=== PATIENT | female | born 1940 | race Two or more races ===

== ENCOUNTER 2018-09-25 13:48 | Inpatient (IN) | payer MEDICARE, OTHER ==
[2018-09-25] MEDS ORDERED: DILTIAZEM HCL INJ 25 MG/5 ML VIAL IV ONE ×2 (14:07→16:05)
[2018-09-25] MEDS ORDERED: NORMAL SALINE 1000 ML 1,000 ML IV ONE (14:09)
--- NOTE | 2018-09-25 14:13 | EKG REPORT ---
SEVERITY:- ABNORMAL ECG - ATRIAL FIBRILLATION WITH RAPID V-RATE REPOLARIZATION ABNORMALITY, PROB RATE RELATED : Confirmed by: Moy Moreno MD 25-Sep-2018 14:11:43
[2018-09-25] MEDS ORDERED: SUCCINYLCHOLINE CHLORIDE INJ 200 MG/10 ML VIAL ONE (14:14)
[2018-09-25 14:22] LABS: ABSOLUTE BASOPHILS # (AUTO) 0.1 10^3/uL (0.0-0.2); ABSOLUTE EOSINOPHILS # (AUTO) 0.2 10^3/uL (0.0-0.6); ABSOLUTE LYMPHOCYTES (AUTO) 3.8 10^3/uL (0.5-4.7); ABSOLUTE NEUT (AUTO) 7.1 10^3/uL (1.7-8.2); BASOPHILS % (AUTO) 0.8 % (0-2); EOSINOPHILS % (AUTO) 1.5 % (0-6); HEMATOCRIT 38.4 % (36.0-47.0); LYMPHOCYTES % (AUTO) 31.2 % (13-45); MEAN CORPUSCULAR HEMOGLOBIN 27.5 pg (27.0-33.4); MEAN CORPUSCULAR HGB CONC 31.3 g/dL (32.0-36.0); MEAN CORPUSCULAR VOLUME 88 fl (80-97); MONOCYTES % (AUTO) 8.3 % (3-13); PLATELET COUNT 289 10^3/uL (150-450); RED BLOOD COUNT 4.37 10^6/uL (3.72-5.28); RED CELL DISTRIBUTION WIDTH 17.9 % (11.5-14.0); SEGMENTED NEUTROPHILS % (AUTO) 58.2 % (42-78); TOTAL CELLS COUNTED % (AUTO) 100 %; WHITE BLOOD COUNT 12.2 10^3/uL (4.0-10.5)
[2018-09-25 14:31] LABS: ALANINE AMINOTRANSFERASE 16 U/L (9-52); ALBUMIN 3.9 g/dL (3.5-5.0); ALKALINE PHOSPHATASE 124 U/L (38-126); ASPARTATE AMINO TRANSFERASE 25 U/L (14-36); BILIRUBIN,DIRECT 0.3 mg/dL (0.0-0.4); BILIRUBIN,TOTAL 0.4 mg/dL (0.2-1.3); BLOOD UREA NITROGEN 25 mg/dL (7-20); CALCIUM 9.4 mg/dL (8.4-10.2); POTASSIUM 4.2 mmol/L (3.6-5.0); TOTAL PROTEIN 6.7 g/dL (6.3-8.2)
[2018-09-25 14:36] LABS: CARBON DIOXIDE 13 mmol/L (22-30); CHLORIDE 99 mmol/L (98-107); SODIUM 138.6 mmol/L (137-145)
[2018-09-25 14:41] LABS: ANION GAP 27 (5-19)
[2018-09-25 14:44] LABS: GLUCOSE 634 mg/dL (75-110)
[2018-09-25] MEDS ORDERED: DEXTROSE 50%-WATER 25 GM/50 ML DISP.SYRIN IV PRN ×4 (14:54→16:40)
[2018-09-25] MEDS ORDERED: DEXTROSE 40% GEL 15 GM TUBE PO PRN ×4 (14:54→16:40)
[2018-09-25] MEDS ORDERED: NORMAL SALINE 100 ML with INSULIN REGULAR, HUMAN 100 UNIT IV PRN ×4 (14:54→16:40)
[2018-09-25] MEDS ORDERED: GLUCAGON,HUMAN RECOMB 1 MG INJ IM PRN ×2 (14:54→16:40)
--- NOTE | 2018-09-25 15:03 | RADIOLOGY REPORT (SQ) ---
EXAM DESCRIPTION: CHEST SINGLE VIEW COMPLETED DATE/TIME: 09/25/2018 2:42 pm REASON FOR STUDY: altered mental status COMPARISON: None. EXAM PARAMETERS: NUMBER OF VIEWS: One view. TECHNIQUE: Single frontal radiographic view of the chest acquired. RADIATION DOSE: NA LIMITATIONS: None. FINDINGS: LUNGS AND PLEURA: Right infrahilar opacity. No focal opacity of the left lung. No pleura l effusion or pneumothorax. MEDIASTINUM AND HILAR STRUCTURES: No masses. Contour normal. HEART AND VASCULAR STRUCTURES: Heart normal in size. Normal vasculature. Calcifications of the aort ic knob. BONES: No acute findings. HARDWARE: None in the chest. OTHER: No other significant finding. IMPRESSION: Right infrahilar pneumonia. TECHNICAL DOCUMENTATION: JOB ID: [id number] [employer]- All Rights Reserved Reading location - IP/workstation name: [email or web address]
[2018-09-25] MEDS ORDERED: CEFTRIAXONE INJ 1000 MG VIAL IV ONE (15:09)
[2018-09-25] MEDS ORDERED: AZITHROMYCIN INJ 500 MG VIAL IV ONE (15:10)
[2018-09-25] MEDS: DILTIAZEM HCL/D5W 125 MG/125 ML RTUINJ IV PRN ×3 (15:24→21:37)
--- NOTE | 2018-09-25 15:24 | ER Document Report ---
ED General - General Chief Complaint: Altered Mental Status Stated Complaint: ALTERED MENTAL STATUS Time Seen by Provider: 09/25/18 14:00 Notes: Patient is a 78-year-old female with diabetes mellitus that presents to the emergency department for chief complaint of altered mental status. History provided by the patient's who is at bedside, as the patient is currently altered and not able to answer questions. He states that around 130 today, the patient seemed to have a brief seizure, and was convulsing, for less than a minute, her eyes had rolled back. No tongue biting. Her loss of bowel or bladder function. No prior history of seizures. She does have atrial fibrillation, and diabetes mellitus. He states she has had a similar episode when she had a urinary tract infection when she was altered and argumentative. He states that over the past week she has been more weak, not been taking her medications including her Lantus 50 units at night which she usually takes. She was also complaining of sweating prior to this episode. Patient was given 2 mg of Ativan by EMS prior to ED arrival as well. Past Medical History: Diabetes mellitus, atrial fibrillation, overactive bladder , hypertension Past Surgical History: Bilateral total knee arthroplasties Social History: Denies current tobacco, alcohol or drug use Family History: Reviewed and noncontributory for presenting illness Allergies: Reviewed, see documented allergy list. REVIEW OF SYSTEMS: Complete review of systems is not obtainable at this time secondary to the patient's altered mental status. PHYSICAL EXAMINATION: Vital signs reviewed, nursing noted reviewed. GENERAL: Elderly female, altered, incomprehensible sounds, will open eyes to noxious stimuli, and localize pain and withdrawal, GCS: 9 HEAD: Atraumatic, normocephalic. EYES: Eyes appear normal, extraocular movements intact, sclera anicteric, conjunctiva are normal. PERRLA ENT: nares patent, oropharynx clear without exudates. Dry mucous membranes NECK:supple without lymphadenopathy LUNGS: Breath sounds clear to auscultation bilaterally and equal. No wheezes rales or rhonchi. No acute respiratory distress HEART: Heart rate tachycardic, and irregular rhythm ABDOMEN: Soft, obese, not apparently tender, normoactive bowel sounds. No rebound, guarding, or rigidity. No masses appreciated. EXTREMITIES: Not apparently tender, moving all limbs spontaneously, no pitting or edema. NEUROLOGICAL: GCS: 9, but patient is spontaneously moving all limbs, sensation appears grossly intact, as patient will withdraw all limbs as well with noxious stimuli distally. Incomprehensible sounds for verbal response. PSYCH: Altered, decreased mental status SKIN: Warm, Dry, normal turgor, no rashes or lesions noted on exposed skin - Related Data Allergies/Adverse Reactions: No Known Allergies Allergy (Unverified 09/17/12 19:45) Past Medical History - Social History Smoking Status: Unknown if Ever Smoked Family History: Reviewed & Not Pertinent Patient has suicidal ideation: No Patient has homicidal ideation: No - Past Medical History Cardiac Medical History: Reports: Hx Hypertension Endocrine Medical History: Reports: Hx Diabetes Mellitus Type 2 Renal/ Medical History: Denies: Hx Peritoneal Dialysis Past Surgical History: Reports: Hx Orthopedic Surgery - Bilat knees, Hx Tonsillectomy Physical Exam - Vital signs Vitals: Resp Pulse Ox 28 H 91 L 09/25/18 14:00 09/25/18 14:00 Course - Re-evaluation Re-evalutation: Patient seen and examined vital signs reviewed. Laboratory data and imaging were ordered as appropriate for the patient's presenting symptoms and complaint, with consideration of any critical or life threatening conditions that may be associated with their obtained history and exam as noted above. Patient was treated with 2 L of IV fluid, started on Cardizem bolus and infusion , initially given 10 mg bolus, patient still tachycardic, therefore given an additional 10 mg bolus after starting on the infusion, she was also started on an insulin infusion, for the patient's DKA. Results were reviewed when available and demonstrated negative CT of the head, and the limitations of motion artifact. Blood work was most consistent with diabetic ketoacidosis, with coma, her bicarbonate was 13, with a gap of 27. Her chest x-ray did demonstrate a possible right lobe pneumonia, patient was started on Rocephin and azithromycin to treat this as well. The patient was re-evaluated and was slightly more responsive, heart rate was improving, however patient still remained critical and needing admission, to the ICU, for further evaluation and management of her acute conditions. From a hemodynamic standpoint her blood pressure was stable throughout her ED course, but she was tachycardic, but improved after the Cardizem infusion. Patient's lactic acid was elevated, she was given IV fluids bolus, repeat was ordered. Evaluation was most consistent with DKA, atrial fibrillation with rapid ventricular response, altered mental status, metabolic encephalopathy Results were discussed with the patient has at this point after careful consideration I feel that that patient should be admitted to the hospital. This was discussed with the patient's at bedside that it is in the best interest for their care to be admitted for further evaluation and management. Patient agreed with this plan of care. A call was placed to the admitted physician, Dr. Mascorro who graciously accepted the patient onto their service. *Note is created using voice recognition software and may contain spelling, syntax or grammatical errors. Laboratory 09/25/18 09/25/18 09/25/18 13:05 13:05 13:05 WBC 12.2 H RBC 4.37 Hgb 12.0 Hct 38.4 MCV 88 MCH 27.5 MCHC 31.3 L RDW 17.9 H Plt Count 289 Seg Neutrophils % 58.2 Lymphocytes % 31.2 Monocytes % 8.3 Eosinophils % 1.5 Basophils % 0.8 Absolute Neutrophils 7.1 Absolute Lymphocytes 3.8 Absolute Monocytes 1.0 Absolute Eosinophils 0.2 Absolute Basophils 0.1 Carbonic Acid HCO3/H2CO3 Ratio ABG pH ABG pCO2 ABG pO2 ABG HCO3 ABG Total CO2 ABG O2 Saturation ABG Base Excess VBG pH VBG pCO2 VBG HCO3 VBG Base Excess FiO2 Sodium 138.6 Potassium 4.2 Chloride 99 Carbon Dioxide 13 L Anion Gap 27 H BUN 25 H Creatinine 1.88 H Est GFR ( Amer) 31 L Est GFR (Non-Af Amer) 26 L Glucose 634 H* POC Glucose Lactic Acid Calcium 9.4 Phosphorus Magnesium Total Bilirubin 0.4 Direct Bilirubin 0.3 Neonat Total Bilirubin Not Reportable Neonat Direct Bilirubin Not Reportable Neonat Indirect Bili Not Reportable AST 25 ALT 16 Alkaline Phosphatase 124 Ammonia Creatine Kinase CK-MB (CK-2) Troponin I 0.073 Total Protein 6.7 Albumin 3.9 Urine Color Urine Appearance Urine pH Ur Specific Marion Urine Protein Urine Glucose (UA) Urine Ketones Urine Blood Urine Nitrite Urine Bilirubin Urine Urobilinogen Ur Leukocyte Esterase Urine WBC (Auto) Urine RBC (Auto) Squamous Epi Cells Auto Urine Mucus (Auto) Urine Ascorbic Acid 09/25/18 09/25/18 09/25/18 15:20 15:20 15:20 WBC RBC Hgb Hct MCV MCH MCHC RDW Plt Count Seg Neutrophils % Lymphocytes % Monocytes % Eosinophils % Basophils % Absolute Neutrophils Absolute Lymphocytes Absolute Monocytes Absolute Eosinophils Absolute Basophils Carbonic Acid HCO3/H2CO3 Ratio ABG pH ABG pCO2 ABG pO2 ABG HCO3 ABG Total CO2 ABG O2 Saturation ABG Base Excess VBG pH 7.33 VBG pCO2 37.5 VBG HCO3 19.1 L VBG Base Excess -6.3 FiO2 Sodium Potassium Chloride Carbon Dioxide Anion Gap BUN Creatinine Est GFR ( Amer) Est GFR (Non-Af Amer) Glucose POC Glucose Lactic Acid 2.5 H Calcium Phosphorus Magnesium Total Bilirubin Direct Bilirubin Neonat Total Bilirubin Neonat Direct Bilirubin Neonat Indirect Bili AST ALT Alkaline Phosphatase Ammonia < 8.7 L Creatine Kinase CK-MB (CK-2) Troponin I Total Protein Albumin Urine Color Urine Appearance Urine pH Ur Specific Marion Urine Protein Urine Glucose (UA) Urine Ketones Urine Blood Urine Nitrite Urine Bilirubin Urine Urobilinogen Ur Leukocyte Esterase Urine WBC (Auto) Urine RBC (Auto) Squamous Epi Cells Auto Urine Mucus (Auto) Urine Ascorbic Acid 09/25/18 09/25/18 09/25/18 17:20 17:31 17:42 WBC RBC Hgb Hct MCV MCH MCHC RDW Plt Count Seg Neutrophils % Lymphocytes % Monocytes % Eosinophils % Basophils % Absolute Neutrophils Absolute Lymphocytes Absolute Monocytes Absolute Eosinophils Absolute Basophils Carbonic Acid HCO3/H2CO3 Ratio ABG pH ABG pCO2 ABG pO2 ABG HCO3 ABG Total CO2 ABG O2 Saturation ABG Base Excess VBG pH VBG pCO2 VBG HCO3 VBG Base Excess FiO2 Sodium Potassium Chloride Carbon Dioxide Anion Gap BUN Creatinine Est GFR ( Amer) Est GFR (Non-Af Amer) Glucose POC Glucose 521 H* Lactic Acid Calcium Phosphorus Magnesium Total Bilirubin Direct Bilirubin Neonat Total Bilirubin Neonat Direct Bilirubin Neonat Indirect Bili AST ALT Alkaline Phosphatase Ammonia Creatine Kinase CK-MB (CK-2) Troponin I 0.078 Total Protein Albumin Urine Color STRAW Urine Appearance CLEAR Urine pH 5.0 Ur Specific Marion 1.017 Urine Protein 100 H Urine Glucose (UA) >=500 H Urine Ketones NEGATIVE Urine Blood SMALL H Urine Nitrite NEGATIVE Urine Bilirubin NEGATIVE Urine Urobilinogen NEGATIVE Ur Leukocyte Esterase NEGATIVE Urine WBC (Auto) 0 Urine RBC (Auto) 1 Squamous Epi Cells Auto <1 Urine Mucus (Auto) RARE Urine Ascorbic Acid NEGATIVE 09/25/18 09/25/18 09/25/18 18:23 19:00 19:00 WBC RBC Hgb Hct MCV MCH MCHC RDW Plt Count Seg Neutrophils % Lymphocytes % Monocytes % Eosinophils % Basophils % Absolute Neutrophils Absolute Lymphocytes Absolute Monocytes Absolute Eosinophils Absolute Basophils Carbonic Acid HCO3/H2CO3 Ratio ABG pH ABG pCO2 ABG pO2 ABG HCO3 ABG Total CO2 ABG O2 Saturation ABG Base Excess VBG pH VBG pCO2 VBG HCO3 VBG Base Excess FiO2 Sodium 142.7 Potassium 4.1 Chloride 106 Carbon Dioxide 19 L Anion Gap 18 BUN 24 H Creatinine 1.66 H Est GFR ( Amer) 36 L Est GFR (Non-Af Amer) 30 L Glucose 366 H POC Glucose 395 H Lactic Acid Calcium 8.8 Phosphorus 2.2 L Magnesium 1.4 L Total Bilirubin 0.4 Direct Bilirubin 0.3 Neonat Total Bilirubin Not Reportable Neonat Direct Bilirubin Not Reportable Neonat Indirect Bili Not Reportable AST 28 ALT 13 Alkaline Phosphatase 108 Ammonia Creatine Kinase 120 CK-MB (CK-2) 1.45 Troponin I 0.085 Total Protein 6.9 Albumin 3.7 Urine Color Urine Appearance Urine pH Ur Specific Marion Urine Protein Urine Glucose (UA) Urine Ketones Urine Blood Urine Nitrite Urine Bilirubin Urine Urobilinogen Ur Leukocyte Esterase Urine WBC (Auto) Urine RBC (Auto) Squamous Epi Cells Auto Urine Mucus (Auto) Urine Ascorbic Acid 09/25/18 09/25/18 09/25/18 19:46 20:06 20:18 WBC RBC Hgb Hct MCV MCH MCHC RDW Plt Count Seg Neutrophils % Lymphocytes % Monocytes % Eosinophils % Basophils % Absolute Neutrophils Absolute Lymphocytes Absolute Monocytes Absolute Eosinophils Absolute Basophils Carbonic Acid 1.19 HCO3/H2CO3 Ratio 16:1 ABG pH 7.32 L ABG pCO2 39.5 ABG pO2 69.9 L ABG HCO3 19.8 L ABG Total CO2 21.0 ABG O2 Saturation 92.8 L ABG Base Excess -5.9 VBG pH VBG pCO2 VBG HCO3 VBG Base Excess FiO2 60% Sodium Potassium Chloride Carbon Dioxide Anion Gap BUN Creatinine Est GFR ( Amer) Est GFR (Non-Af Amer) Glucose POC Glucose 290 H Lactic Acid 5.2 H Calcium Phosphorus Magnesium Total Bilirubin Direct Bilirubin Neonat Total Bilirubin Neonat Direct Bilirubin Neonat Indirect Bili AST ALT Alkaline Phosphatase Ammonia Creatine Kinase CK-MB (CK-2) Troponin I Total Protein Albumin Urine Color Urine Appearance Urine pH Ur Specific Marion Urine Protein Urine Glucose (UA) Urine Ketones Urine Blood Urine Nitrite Urine Bilirubin Urine Urobilinogen Ur Leukocyte Esterase Urine WBC (Auto) Urine RBC (Auto) Squamous Epi Cells Auto Urine Mucus (Auto) Urine Ascorbic Acid 09/25/18 09/25/18 09/25/18 21:20 22:33 22:46 WBC RBC Hgb Hct MCV MCH MCHC RDW Plt Count Seg Neutrophils % Lymphocytes % Monocytes % Eosinophils % Basophils % Absolute Neutrophils Absolute Lymphocytes Absolute Monocytes Absolute Eosinophils Absolute Basophils Carbonic Acid HCO3/H2CO3 Ratio ABG pH ABG pCO2 ABG pO2 ABG HCO3 ABG Total CO2 ABG O2 Saturation ABG Base Excess VBG pH VBG pCO2 VBG HCO3 VBG Base Excess FiO2 Sodium 142.2 Potassium 4.5 Chloride 109 H Carbon Dioxide 20 L Anion Gap 13 BUN 23 H Creatinine 1.69 H Est GFR ( Amer) 36 L Est GFR (Non-Af Amer) 29 L Glucose 149 H POC Glucose 260 H 154 H Lactic Acid Calcium 9.0 Phosphorus Magnesium Total Bilirubin Direct Bilirubin Neonat Total Bilirubin Neonat Direct Bilirubin Neonat Indirect Bili AST ALT Alkaline Phosphatase Ammonia Creatine Kinase CK-MB (CK-2) Troponin I Total Protein Albumin Urine Color Urine Appearance Urine pH Ur Specific Marion Urine Protein Urine Glucose (UA) Urine Ketones Urine Blood Urine Nitrite Urine Bilirubin Urine Urobilinogen Ur Leukocyte Esterase Urine WBC (Auto) Urine RBC (Auto) Squamous Epi Cells Auto Urine Mucus (Auto) Urine Ascorbic Acid Abdomen/Pelvis CT 09/25/18 00:00 IMPRESSION: Limited study without IV or oral contrast. No evidence of bowel obstruction. Right lung base atelectasis/consolidation with trace pleural effusion. Chest X-Ray 09/25/18 14:06 IMPRESSION: Right infrahilar pneumonia. Head CT 09/25/18 14:07 IMPRESSION: 1. Significantly motion degraded exam. No acute intracranial findings of the evaluated structures. 2. Mild chronic microvascular ischemic disease. EVIDENCE OF ACUTE STROKE: NO. - Vital Signs Vital signs: Temp Pulse Resp BP Pulse Ox 102.9 F H 29 H 177/132 H 97 09/25/18 22:38 09/25/18 18:00 09/25/18 16:00 09/25/18 19:20 - Laboratory Result Diagrams: 09/25/18 13:05 09/25/18 22:46 Laboratory results interpreted by me: 09/25/18 09/25/18 09/25/18 13:05 13:05 15:20 WBC 12.2 H MCHC 31.3 L RDW 17.9 H VBG HCO3 19.1 L Carbon Dioxide 13 L Anion Gap 27 H BUN 25 H Creatinine 1.88 H Est GFR ( Amer) 31 L Est GFR (Non-Af Amer) 26 L Glucose 634 H* Lactic Acid Ammonia 09/25/18 09/25/18 15:20 15:20 WBC MCHC RDW VBG HCO3 Carbon Dioxide Anion Gap BUN Creatinine Est GFR ( Amer) Est GFR (Non-Af Amer) Glucose Lactic Acid 2.5 H Ammonia < 8.7 L - EKG Interpretation by Me Additional EKG results interpreted by me: EKG demonstrates atrial fibrillation with rapid ventricular response, with a ventricular rate of 153 bpm, normal axis, QTC 434 ms, there is T wave inversions in leads II, III and aVF, no prior EKG for comparison. Critical Care Note - Critical Care Note Total time excluding time spent on procedures (mins): 55 Comments: Critical care time 55 minutes exclusive from separate billable procedures for a patient requiring complex medical decision making, and high potential for clinical deterioration. And altered patient, with DKA, and community-acquired pneumonia, and atrial fibrillation with rapid ventricular response, requiring IV infusion of Cardizem, and frequent monitoring.. Time spent obtaining history from patient or surrogate, discussions with consultants, development of treatment plan with patient or surrogate, evaluation of patient's response to treatment, examination of patient, ordering and performing treatments and interventions, ordering and review of laboratory studies, re-evaluation of patient's condition, ordering and review of radiographic studies and review of old charts Discharge - Discharge Clinical Impression: Atrial fibrillation with RVR, Metabolic encephalopathy, Lactic acidosis, ANGELITA ( acute kidney injury) DKA (diabetic ketoacidoses) Qualifiers: Diabetes mellitus type: type 2 Diabetes mellitus complication detail: with coma Qualified Code(s): E11.11 - Type 2 diabetes mellitus with ketoacidosis with coma Pneumonia Qualifiers: Pneumonia type: due to unspecified organism Laterality: right Lung location: middle lobe of lung Qualified Code(s): J18.1 - Lobar pneumonia, unspecified organism Leukocytosis Qualifiers: Leukocytosis type: unspecified Qualified Code(s): D72.829 - Elevated white blood cell count, unspecified Condition: Stable Disposition: ADMITTED INPATIENT Admitting Provider: Hospitalist - Dr. Mascorro Unit Admitted: ICU
[2018-09-25 15:41] LABS: VENOUS BLOOD BASE EXCESS -6.3 mmol/L; VENOUS BLOOD HCO3 19.1 mmol/L (20-32); VENOUS BLOOD PCO2 37.5 mmHg (35-63); VENOUS BLOOD PH 7.33 (7.30-7.42)
[2018-09-25] MEDS ORDERED: INSULIN REG, HUMAN 100 UNIT/ML 3 ML VIAL (PYX) ONE (15:51)
--- NOTE | 2018-09-25 16:12 | RADIOLOGY REPORT (SQ) ---
EXAM DESCRIPTION: CT HEAD WITHOUT COMPLETED DATE/TIME: 09/25/2018 3:21 pm REASON FOR STUDY: altered mental status COMPARISON: None. TECHNIQUE: Axial images acquired through the brain without intravenous contrast. Images reviewed wi th bone, brain and subdural windows. Additional sagittal and coronal reconstructions were generated. Images stored on PACS. All CT scanners at this facility use dose modulation, iterative reconstruction, and/or weight based d osing when appropriate to reduce radiation dose to as low as reasonably achievable (ALARA). [facility]: Dose Right [facility]: CareDose [facility]: Dose Right [facility]: Teradose 4D [facility]: Smart [employer] Network RADIATION DOSE: CT Rad equipment meets quality standard of care and radiation dose reduction techniq ues were employed. CTDIvol: 53.2 mGy. DLP: 2865 mGy-cm. mGy. LIMITATIONS: Motion degraded exam. Unable to evaluate the cerebellum and skull base due to signific ant motion. FINDINGS: VENTRICLES: Normal size and contour. CEREBRUM: No masses. No hemorrhage. No midline shift. No evidence for acute infarction. Few scatte red areas of low density in the white matter most likely chronic small vessel ischemic changes. CEREBELLUM: Unable to evaluate due to motion. EXTRAAXIAL SPACES: No fluid collections. No masses. ORBITS AND GLOBE: Unable to evaluate due to motion. CALVARIUM: No fracture. PARANASAL SINUSES: Appear clear. SOFT TISSUES: No mass or hematoma. OTHER: No other significant finding. IMPRESSION: 1. Significantly motion degraded exam. No acute intracranial findings of the evaluated structures. 2. Mild chronic microvascular ischemic disease. EVIDENCE OF ACUTE STROKE: NO. COMMENT: Quality ID # [id number]: Final reports with documentation of one or more dose reduction techniques (e.g., Automated exposure control, adjustment of the mA and/or kV according to patient size, use of iterative reconstruction technique) TECHNICAL DOCUMENTATION: JOB ID: [id number] [employer]- All Rights Reserved Reading location - IP/workstation name: [email or web address]
[2018-09-25] MEDS ORDERED: ONDANSETRON HCL INJ/PF 4 MG/2 ML SDV IV PRN (16:25)
--- NOTE | 2018-09-25 17:12 | PDOC H&P ---
History of Present Illness Admission Date/PCP: MARIAH MONROE MD History of Present Illness: SUSIE CARTER is a 78 year old female patient with past medical history of morbid obesity, hypertension, hyperlipidemia and diabetes mellitus brought by EMS for altered mental status. Since patient is obtunded or somehow postictal she is not able to give history. Brief history is obtained from the ER attending note and from her per her patient seemed to have a brief seizure-like activity this afternoon and he describes seizure activity as tonic-clonic and her eyes had rolled back. In route to hospital patient was given Ativan by EMS. Patient also noticed to have atrial fibrillation with rapid ventricular response. Her states that patient does not have history of cardiac arrhythmia and also I checked her medication list she is not on any rate control or anticoagulant medication. Her initial workup shows hyperglycemia with blood glucose of 643 mild leukocytosis WBC of 12.2 lactic acid 2.5 creatinine of 1.88 and her chest x-ray reported as right infrahilar pneumonia. Further detailed history and review of systems unobtainable Past Medical History Cardiac Medical History: Reports: Hypertension Endocrine Medical History: Reports: Diabetes Mellitus Type 2 Past Surgical History Past Surgical History: Reports: Orthopedic Surgery - Bilat knees, Tonsillectomy Social History Smoking Status: Unknown if Ever Smoked Family History Parental Family History Reviewed: Yes Children Family History Reviewed: Yes Sibling(s) Family History Reviewed.: Yes Medication/Allergy Home Medications: Aspirin [Aspirin 81 mg Chewable Tablet] 09/17/12 Atorvastatin Calcium [Lipitor 80 Mg Tablet] 80 mg PO QHS 09/17/12 Calcium Carbonate/Vitamin D3 [Calcium 500+Vit D 400 Tab] 09/17/12 Celecoxib [Celebrex 200 mg Capsule] 09/17/12 Duloxetine HCl [Cymbalta] 09/17/12 Esomeprazole Magnesium [Nexium] 09/17/12 Exenatide [Byetta Inj 10 Mcg/0.04 ml 2.4 ml Pen.injctr] 09/17/12 Glipizide [Glucotrol Xl] 09/17/12 Insulin Glargine,Hum.rec.anlog [Lantus Insulin 100 Unit/mL] 09/17/12 Metoprolol Succinate [Toprol Xl 50 mg Tab.sr] 09/17/12 Nifedipine [Adalat CC 90 mg Tablet] 09/17/12 Oxybutynin Chloride [Ditropan 5 mg Tablet] 09/17/12 Telmisartan/Hydrochlorothiazid [Micardis HCT 80-25 mg Tablet] 09/17/12 Zolpidem Tartrate [Ambien 10 mg Tablet] 09/17/12 Allergies/Adverse Reactions: No Known Allergies Allergy (Unverified 09/17/12 19:45) Review of Systems ROS unobtainable: Due to mental status Physical Exam Vital Signs: Temp Pulse Resp BP Pulse Ox 98.6 F 18 177/132 H 95 09/25/18 14:12 09/25/18 16:01 09/25/18 16:00 09/25/18 16:01 Intake & Output 09/24/18 09/25/18 09/26/18 06:59 06:59 06:59 Intake Total 13 Balance 13 Weight 107 kg General appearance: PRESENT: no acute distress Head exam: PRESENT: atraumatic Neck exam: ABSENT: carotid bruit, JVD, lymphadenopathy, thyromegaly Respiratory exam: PRESENT: clear to auscultation deanna. ABSENT: rales, rhonchi, wheezes Cardiovascular exam: PRESENT: irregular rhythm GI/Abdominal exam: PRESENT: other - Obese abdomen Results Laboratory Results: 09/25/18 13:05 09/25/18 13:05 09/25/18 09/25/18 09/25/18 13:05 13:05 15:20 WBC 12.2 H RBC 4.37 Hgb 12.0 Hct 38.4 MCV 88 MCH 27.5 MCHC 31.3 L RDW 17.9 H Plt Count 289 Seg Neutrophils % 58.2 Lymphocytes % 31.2 Monocytes % 8.3 Eosinophils % 1.5 Basophils % 0.8 Absolute Neutrophils 7.1 Absolute Lymphocytes 3.8 Absolute Monocytes 1.0 Absolute Eosinophils 0.2 Absolute Basophils 0.1 VBG pH 7.33 VBG pCO2 37.5 VBG HCO3 19.1 L VBG Base Excess -6.3 Sodium 138.6 Potassium 4.2 Chloride 99 Carbon Dioxide 13 L Anion Gap 27 H BUN 25 H Creatinine 1.88 H Est GFR ( Amer) 31 L Est GFR (Non-Af Amer) 26 L Glucose 634 H* Lactic Acid Calcium 9.4 Total Bilirubin 0.4 AST 25 ALT 16 Alkaline Phosphatase 124 Ammonia Total Protein 6.7 Albumin 3.9 09/25/18 09/25/18 15:20 15:20 WBC RBC Hgb Hct MCV MCH MCHC RDW Plt Count Seg Neutrophils % Lymphocytes % Monocytes % Eosinophils % Basophils % Absolute Neutrophils Absolute Lymphocytes Absolute Monocytes Absolute Eosinophils Absolute Basophils VBG pH VBG pCO2 VBG HCO3 VBG Base Excess Sodium Potassium Chloride Carbon Dioxide Anion Gap BUN Creatinine Est GFR ( Amer) Est GFR (Non-Af Amer) Glucose Lactic Acid 2.5 H Calcium Total Bilirubin AST ALT Alkaline Phosphatase Ammonia < 8.7 L Total Protein Albumin 09/25/18 13:05 Troponin I 0.073 Impressions: Chest X-Ray 09/25/18 14:06 IMPRESSION: Right infrahilar pneumonia. Head CT 09/25/18 14:07 IMPRESSION: 1. Significantly motion degraded exam. No acute intracranial findings of the evaluated structures. 2. Mild chronic microvascular ischemic disease. EVIDENCE OF ACUTE STROKE: NO. Assessment & Plan - Diagnosis (1) AMS due to metabolic encephalopathy Is this a current diagnosis for this admission?: Yes Plan: This might be related to her DKA. Correction of the DKA will solve the problem. (2) Atrial fibrillation with RVR Is this a current diagnosis for this admission?: Yes Plan: At this point we do not know whether this atrial fibrillation is new onset or chronic. Patient has been started on Cardizem.. (3) DKA (diabetic ketoacidoses) Qualifiers: Diabetes mellitus type: type 2 Is this a current diagnosis for this admission?: Yes Plan: Patient has blood sugar level of 643, anion gap of 27. Patient will be started on insulin drip cautious hydration and she will be admitted to the ICU. (4) R infra hilar PNA Is this a current diagnosis for this admission?: Yes Plan: Patient has been started on Levaquin (5) Suspected new onset seizure Is this a current diagnosis for this admission?: Yes Plan: According to her 's description she might have grand mal seizure. CT of the head is not revealing. I will request MRI of the brain (6) Hypertension Qualifiers: Hypertension type: essential hypertension Qualified Code(s): I10 - Essential (primary) hypertension Is this a current diagnosis for this admission?: Yes Plan: Continue her home medication (7) Morbid obesity with BMI of 40.0-44.9, adult Is this a current diagnosis for this admission?: Yes Plan: I would encourage the patient to do lifestyle modification. (8) Hyperlipidemia Qualifiers: Hyperlipidemia type: unspecified Qualified Code(s): E78.5 - Hyperlipidemia , unspecified Is this a current diagnosis for this admission?: Yes Plan: Continue Lipitor
[2018-09-25 18:02] LABS: APPEARANCE,URINE CLEAR; BILIRUBIN,URINE NEGATIVE (NEGATIVE); COLOR,URINE STRAW; GLUCOSE, URINE >=500 mg/dL (NEGATIVE); KETONES,URINE NEGATIVE (NEGATIVE); LEUKOCYTE ESTERASE,URINE NEGATIVE (NEGATIVE); NITRITE,URINE NEGATIVE (NEGATIVE); PROTEIN,URINE 100 mg/dL (NEGATIVE); URINE SPECIFIC GRAVITY 1.017; UROBILINOGEN,URINE NEGATIVE mg/dL (<2.0)
[2018-09-25] MEDS ORDERED: POTASSI CL 20 MEQ/1/2NS 1L 20 MEQ/1,000 ML RTUINJ IV PRN (18:45)
[2018-09-25] MEDS ORDERED: POTASSI CL 20 MEQ/1/2NS 1L 20 MEQ/1,000 ML RTUINJ IV ONE (18:53)
[2018-09-25] MEDS ORDERED: POTASSI CL 20 MEQ/50 ML RIDER 20 MEQ/50 ML RTUPB IV ONE (18:54)
[2018-09-25] MEDS ORDERED: PROPOFOL 1,000 MG/100 ML INFUS..BTL IV ONE (19:09)
[2018-09-25] MEDS ORDERED: ACETAMINOPHEN 650 MG SUPP.RECT PR ONE (19:11)
[2018-09-25] MEDS ORDERED: PHARMACY COMMUNICATION ORDER MC NR (19:15)
[2018-09-25] MEDS ORDERED: PANTOPRAZOLE SODIUM 40 MG VIAL IV ONE (19:15)
[2018-09-25] MEDS: POTASSI CL 20 MEQ/1/2NS 1L 1000 ML IV PRN ×2 (19:22→22:37)
[2018-09-25] MEDS: POTASSIUM CHLORIDE 20 MEQ/50 ML RTU IV SCH ×2 (19:23→21:28)
[2018-09-25 19:25] LABS: ALANINE AMINOTRANSFERASE 13 U/L (9-52); ALBUMIN 3.7 g/dL (3.5-5.0); ALKALINE PHOSPHATASE 108 U/L (38-126); ANION GAP 18 (5-19); ASPARTATE AMINO TRANSFERASE 28 U/L (14-36); BILIRUBIN,DIRECT 0.3 mg/dL (0.0-0.4); BILIRUBIN,TOTAL 0.4 mg/dL (0.2-1.3); BLOOD UREA NITROGEN 24 mg/dL (7-20); CALCIUM 8.8 mg/dL (8.4-10.2); CARBON DIOXIDE 19 mmol/L (22-30); CHLORIDE 106 mmol/L (98-107); CREATINE KINASE 120 U/L (30-135); GLUCOSE 366 mg/dL (75-110); PHOSPHORUS 2.2 mg/dL (2.5-4.5); POTASSIUM 4.1 mmol/L (3.6-5.0); SODIUM 142.7 mmol/L (137-145); TOTAL PROTEIN 6.9 g/dL (6.3-8.2)
[2018-09-25] MEDS: PROPOFOL 1,000 MG/100 ML INFUS..BTL IV PRN (19:29)
[2018-09-25] MEDS ORDERED: DEXTROSE 40% GEL 15 GM TUBE NG PRN ×2 (19:30)
[2018-09-25 19:37] LABS: CREATINE KINASE MB 1.45 ng/mL (<4.55); TROPONIN I 0.085 ng/mL
[2018-09-25] MEDS ORDERED: PHOSPHORUS #1 250 MG TABLET NG ONE (19:45)
[2018-09-25] MEDS: MAGNESIUM SULFATE/D5W 1 GM/100 ML RTUPB IV SCH ×2 (19:57→21:27)
[2018-09-25] MEDS: LORAZEPAM INJ 2 MG/1 ML VIAL IV PRN (19:58)
[2018-09-25] MEDS: FENTANYL CITRATE INJ/PF 100 MCG/2 ML AMPUL IV PRN (19:58)
--- NOTE | 2018-09-25 20:11 | RADIOLOGY REPORT (SQ) ---
EXAM DESCRIPTION: CHEST SINGLE VIEW COMPLETED DATE/TIME: 09/25/2018 7:43 pm REASON FOR STUDY: intubation COMPARISON: 09/25/2018. FINDINGS: Single-view chest, AP portable semi-upright. Endotracheal tube appropriate, almost to the level of the aortic arch. Nasogastric tube appropriately positioned with tip in the stomach. Stable cardiomediastinal silhouette. Slight worsening of vascular congestion and patchy airspace disease/edema. IMPRESSION: As above. Endotracheal tube appropriate. TECHNICAL DOCUMENTATION: JOB ID: [id number] Reading location - IP/workstation name: [email or web address]
[2018-09-25 20:26] LABS: ARTERIAL BLOOD BASE EXCESS -5.9 mmol/L; ARTERIAL BLOOD H2CO3 1.19 mmol/L (1.05-1.35); ARTERIAL BLOOD HCO3 19.8 mmol/L (20-24); ARTERIAL BLOOD O2 SATURATION 92.8 % (94-98); ARTERIAL BLOOD PCO2 39.5 mmHg (35-45); ARTERIAL BLOOD PH 7.32 (7.35-7.45); ARTERIAL BLOOD PO2 69.9 mmHg (80-100)
[2018-09-25 20:27] LABS: ARTERIAL BLOOD FIO2 60%
--- NOTE | 2018-09-25 21:43 | RADIOLOGY REPORT (SQ) ---
CT ABDOMEN PELVIS WITHOUT IV CONTRAST HISTORY: Vomiting/diarrhea COMPARISON: None. TECHNIQUE: CT scan of the abdomen and pelvis without IV contrast. This exam was performed according to our departmental dose-optimization program, which includes automated exposure control, adjustment of the mA and/or kV according to patient size and/or use of iterative reconstruction technique. FINDINGS: Please note that the evaluation of the solid and hollow abdominal viscera is limited without IV contrast. Right lung base atelectasis/consolidation with trace pleural effusion. No pericardial effusion. Liver, gallbladder, spleen, pancreas, and adrenal glands are unremarkable. Both kidneys appear atrophic. Small amount of hyperdense material is seen in the interpolar right kidney which may be postsurgical. Small hypodense lesions in both kidneys may represent cysts. Soliz catheter terminates in the bladder. Status post hysterectomy. Enteric tube terminates in the stomach. No small bowel obstruction. Appendix is not visualized. No free air or free fluid. IMPRESSION: Limited study without IV or oral contrast. No evidence of bowel obstruction. Right lung base atelectasis/consolidation with trace pleural effusion.
[2018-09-25] MEDS ORDERED: FAMOTIDINE 20 MG TABLET PO SCH (22:00)
[2018-09-25] MEDS ORDERED: HEPARIN SOD (PORCINE) 5,000 UNIT/ML 1 ML SYRINGE SUBCUT SCH (22:00)
[2018-09-25] MEDS ORDERED: LEVETIRACETAM 500 MG/NACL-ISO 500 MG/100 ML RTUPB IV SCH (22:00)
[2018-09-25] MEDS ORDERED: ENOXAPARIN SODIUM INJ 120 MG/0.8 ML DISP.SYRIN SUBCUT ONE (23:13)
[2018-09-25] MEDS ORDERED: POTASSI CL 20 MEQ/D5-1/2NS 1L 1,000 ML IV ONE (23:16)
[2018-09-25] MEDS ORDERED: LEVETIRACETAM 500 MG/NACL-ISO 500 MG/100 ML RTUPB IV ONE (23:17)
[2018-09-25 23:19] LABS: ANION GAP 13 (5-19); BLOOD UREA NITROGEN 23 mg/dL (7-20); CARBON DIOXIDE 20 mmol/L (22-30); CHLORIDE 109 mmol/L (98-107); GLUCOSE 149 mg/dL (75-110); POTASSIUM 4.5 mmol/L (3.6-5.0); SODIUM 142.2 mmol/L (137-145)
[2018-09-25] MEDS: ENOXAPARIN SODIUM INJ 120 MG/0.8 ML DISP.SYRIN SUBCUT SCH (23:32)
[2018-09-26] MEDS: PROPOFOL 1,000 MG/100 ML INFUS..BTL IV PRN ×7 (01:17→22:33)
[2018-09-26 01:33] LABS: CREATINE KINASE MB 1.57 ng/mL (<4.55)
[2018-09-26 01:46] LABS: TROPONIN I 0.229 ng/mL
[2018-09-26] MEDS ORDERED: ACETAMINOPHEN 650 MG SUPP.RECT PR ONE ×2 (02:58→03:15)
[2018-09-26] MEDS ORDERED: ACETAMINOPHEN 650 MG SUPP.RECT PR PRN (03:00)
[2018-09-26 03:28] LABS: ANION GAP 11 (5-19); BLOOD UREA NITROGEN 23 mg/dL (7-20); CALCIUM 8.5 mg/dL (8.4-10.2); CARBON DIOXIDE 20 mmol/L (22-30); CHLORIDE 107 mmol/L (98-107); GLUCOSE 218 mg/dL (75-110); POTASSIUM 4.7 mmol/L (3.6-5.0); SODIUM 138.3 mmol/L (137-145)
[2018-09-26] MEDS: FENTANYL CITRATE INJ/PF 100 MCG/2 ML AMPUL IV PRN ×3 (04:03→23:50)
[2018-09-26] MEDS: LORAZEPAM INJ 2 MG/1 ML VIAL IV PRN ×2 (04:03→23:50)
[2018-09-26] MEDS: POTASSI CL 20 MEQ/D5-1/2NS 1L 1000 ML IV PRN ×2 (04:04→08:05)
[2018-09-26 05:59] LABS: ARTERIAL BLOOD PCO2 29.9 mmHg (35-45); ARTERIAL BLOOD PH 7.38 (7.35-7.45); ARTERIAL BLOOD PO2 78.7 mmHg (80-100)
[2018-09-26 06:00] LABS: ARTERIAL BLOOD O2 SATURATION 95.6 % (94-98)
[2018-09-26 06:01] LABS: ARTERIAL BLOOD FIO2 40%; ARTERIAL BLOOD HCO3 17.1 mmol/L (20-24)
[2018-09-26] MEDS: INSULIN LISPRO 100 UNIT/ML 3 ML VIAL SUBCUT PRN ×2 (06:25→18:48)
[2018-09-26] MEDS ORDERED: VANCOMYCIN HCL 0 MG in DEXTROSE 5%-WATER 250 ML IV NR (07:30)
[2018-09-26 07:32] LABS: ALANINE AMINOTRANSFERASE 24 U/L (9-52); ALBUMIN 2.9 g/dL (3.5-5.0); ALKALINE PHOSPHATASE 95 U/L (38-126); ANION GAP 13 (5-19); ASPARTATE AMINO TRANSFERASE 26 U/L (14-36); BILIRUBIN,DIRECT 0.2 mg/dL (0.0-0.4); BILIRUBIN,TOTAL 0.3 mg/dL (0.2-1.3); BLOOD UREA NITROGEN 22 mg/dL (7-20); CALCIUM 8.1 mg/dL (8.4-10.2); CARBON DIOXIDE 17 mmol/L (22-30); CHLORIDE 106 mmol/L (98-107); GLUCOSE 374 mg/dL (75-110); SODIUM 136.4 mmol/L (137-145); TOTAL PROTEIN 5.4 g/dL (6.3-8.2)
[2018-09-26 07:44] LABS: CREATINE KINASE MB 1.73 ng/mL (<4.55)
[2018-09-26 07:54] LABS: TROPONIN I 0.213 ng/mL
[2018-09-26] MEDS ORDERED: CEFEPIME 2 GM/D5W RTU 2 GM/50 ML RTUPB IV ONE (08:00)
[2018-09-26 08:03] LABS: ABSOLUTE BASOPHILS # (AUTO) 0.1 10^3/uL (0.0-0.2); ABSOLUTE MONOCYTES (AUTO) 1.3 10^3/uL (0.1-1.4); BASOPHILS % (AUTO) 0.8 % (0-2); HEMATOCRIT 29.5 % (36.0-47.0); LYMPHOCYTES % (AUTO) 15.2 % (13-45); MEAN CORPUSCULAR HEMOGLOBIN 27.1 pg (27.0-33.4); MEAN CORPUSCULAR HGB CONC 32.5 g/dL (32.0-36.0); MONOCYTES % (AUTO) 9.5 % (3-13); PLATELET COUNT 197 10^3/uL (150-450); RED BLOOD COUNT 3.53 10^6/uL (3.72-5.28); RED CELL DISTRIBUTION WIDTH 17.9 % (11.5-14.0); SEGMENTED NEUTROPHILS % (AUTO) 74.5 % (42-78); TOTAL CELLS COUNTED % (AUTO) 100 %; WHITE BLOOD COUNT 13.4 10^3/uL (4.0-10.5)
[2018-09-26 08:19] LABS: HEMOGLOBIN 9.6 g/dL (12.0-15.5); MEAN CORPUSCULAR VOLUME 83 fl (80-97)
--- NOTE | 2018-09-26 08:30 | RADIOLOGY REPORT (SQ) ---
EXAM DESCRIPTION: CHEST SINGLE VIEW COMPLETED DATE/TIME: 09/26/2018 8:14 am REASON FOR STUDY: pna COMPARISON: 09/25/2018. FINDINGS: AP portable upright single-view chest. Endotracheal and nasogastric tubes appropriate. Slight worsening aeration left base. Improved aeration otherwise. No pneumothorax. IMPRESSION: Shifting areas of airspace opacity. Appropriate lines and tubes. TECHNICAL DOCUMENTATION: JOB ID: [id number] Reading location - IP/workstation name: [email or web address]
[2018-09-26] MEDS ORDERED: VANCOMYCIN HCL 1,500 MG in DEXTROSE 5%-WATER 250 ML IV ONE (09:30)
--- NOTE | 2018-09-26 09:58 | EKG REPORT ---
SEVERITY:- ABNORMAL ECG - ATRIAL FIBRILLATION, V-RATE 72-136 BORDERLINE T WAVE ABNORMALITIES : Confirmed by: Moy Moreno MD 26-Sep-2018 09:57:33
[2018-09-26] MEDS ORDERED: APIXABAN 5 MG TABLET PO SCH (10:00)
[2018-09-26] MEDS ORDERED: CEFEPIME 2 GM/D5W RTU 2 GM/50 ML RTUPB IV SCH (10:00)
[2018-09-26] MEDS ORDERED: PANTOPRAZOLE SODIUM 40 MG VIAL IV SCH (10:00)
[2018-09-26] MEDS ORDERED: LEVOFLOXACIN 750 MG/D5W RTU 750 MG/150 ML RTUPB IV SCH (10:00)
[2018-09-26] MEDS: LEVETIRACETAM 500 MG/NACL-ISO 500 MG/100 ML RTUPB IV SCH ×2 (10:14→21:30)
[2018-09-26] MEDS: NORMAL SALINE 1000 ML 1,000 ML IV PRN ×2 (10:17→18:14)
--- NOTE | 2018-09-26 10:43 | PDOC PROGRESS REPORT ---
Subjective Progress Note for:: 09/26/18 Subjective:: This is 78 years old female patient with multiple comorbidities brought by EMS for altered mental status, and seizure-like activity witnessed by her . Her initial blood work shows hyperglycemia with blood sugar level of 643, lactic acidosis, A. fib with RVR and right hilar pneumonia. For her DKA patient has been started on insulin drip, for her A. fib Cardizem drip and follow pneumonia empirically she is started on Zithromax and ceftriaxone. Patient admitted with full inpatient status to medical intensive care unit. Overnight patient developed vomiting and the on-call physician intubated the patient to avoid aspiration and to protect her airway. Patient also spiked fever with T-max of 102.3. Her DKA has resolved. Patient is still in A. fib and tachycardic so the Cardizem drip is on. This morning her labs shows hemoglobin A1c of 9.1 troponin of 0.13 lactic acid of 1.9. Dr. Gauthier consulted for positive troponin and for possible new onset atrial fibrillation. And Dr. Palma also consulted. LP is requested since patient has altered mental status , fever and seizure-like activity. I escalated her antibiotics to IV cefepime and vancomycin. Reason For Visit: ALTERED MENTAL STATUS DUE TO METABOLIC Physical Exam Vital Signs: Temp Pulse Resp BP Pulse Ox 102.0 F H 88 18 109/67 100 09/26/18 08:00 09/26/18 08:00 09/26/18 08:00 09/26/18 08:00 09/26/18 08:25 Intake & Output 09/25/18 09/26/18 09/27/18 06:59 06:59 06:59 Intake Total 2542 1345 Output Total 925 45 Balance 1617 1300 Weight 107.7 kg General appearance: PRESENT: no acute distress Head exam: PRESENT: atraumatic Respiratory exam: PRESENT: rales, rhonchi Cardiovascular exam: PRESENT: irregular rhythm, tachycardia GI/Abdominal exam: PRESENT: other - Obese abdomen Extremities exam: PRESENT: full ROM. ABSENT: calf tenderness, clubbing, pedal edema Results Laboratory Results: 09/26/18 07:48 09/26/18 07:03 09/25/18 09/25/18 09/25/18 17:20 19:00 19:46 WBC RBC Hgb Hct MCV MCH MCHC RDW Plt Count Seg Neutrophils % Lymphocytes % Monocytes % Eosinophils % Basophils % Absolute Neutrophils Absolute Lymphocytes Absolute Monocytes Absolute Eosinophils Absolute Basophils Carbonic Acid HCO3/H2CO3 Ratio ABG pH ABG pCO2 ABG pO2 ABG HCO3 ABG O2 Saturation ABG Base Excess FiO2 Sodium 142.7 Potassium 4.1 Chloride 106 Carbon Dioxide 19 L Anion Gap 18 BUN 24 H Creatinine 1.66 H Est GFR ( Amer) 36 L Est GFR (Non-Af Amer) 30 L Glucose 366 H Lactic Acid 5.2 H Calcium 8.8 Phosphorus 2.2 L Magnesium 1.4 L Total Bilirubin 0.4 AST 28 ALT 13 Alkaline Phosphatase 108 Total Protein 6.9 Albumin 3.7 TSH Urine Color STRAW Urine Appearance CLEAR Urine pH 5.0 Ur Specific [place] 1.017 Urine Protein 100 H Urine Glucose (UA) >=500 H Urine Ketones NEGATIVE Urine Blood SMALL H Urine Nitrite NEGATIVE Ur Leukocyte Esterase NEGATIVE Urine WBC (Auto) 0 Urine RBC (Auto) 1 09/25/18 09/25/18 09/26/18 20:18 22:46 02:55 WBC RBC Hgb Hct MCV MCH MCHC RDW Plt Count Seg Neutrophils % Lymphocytes % Monocytes % Eosinophils % Basophils % Absolute Neutrophils Absolute Lymphocytes Absolute Monocytes Absolute Eosinophils Absolute Basophils Carbonic Acid 1.19 HCO3/H2CO3 Ratio 16:1 ABG pH 7.32 L ABG pCO2 39.5 ABG pO2 69.9 L ABG HCO3 19.8 L ABG O2 Saturation 92.8 L ABG Base Excess -5.9 FiO2 60% Sodium 142.2 138.3 Potassium 4.5 4.7 Chloride 109 H 107 Carbon Dioxide 20 L 20 L Anion Gap 13 11 BUN 23 H 23 H Creatinine 1.69 H 1.79 H Est GFR ( Amer) 36 L 33 L Est GFR (Non-Af Amer) 29 L 27 L Glucose 149 H 218 H Lactic Acid Calcium 9.0 8.5 Phosphorus Magnesium Total Bilirubin AST ALT Alkaline Phosphatase Total Protein Albumin TSH Urine Color Urine Appearance Urine pH Ur Specific [place] Urine Protein Urine Glucose (UA) Urine Ketones Urine Blood Urine Nitrite Ur Leukocyte Esterase Urine WBC (Auto) Urine RBC (Auto) 09/26/18 09/26/18 09/26/18 05:41 07:03 07:03 WBC Cancelled RBC Cancelled Hgb Cancelled Hct Cancelled MCV Cancelled MCH Cancelled MCHC Cancelled RDW Cancelled Plt Count Cancelled Seg Neutrophils % Cancelled Lymphocytes % Cancelled Monocytes % Cancelled Eosinophils % Cancelled Basophils % Cancelled Absolute Neutrophils Cancelled Absolute Lymphocytes Cancelled Absolute Monocytes Cancelled Absolute Eosinophils Cancelled Absolute Basophils Cancelled Carbonic Acid 0.90 L HCO3/H2CO3 Ratio 19:1 ABG pH 7.38 ABG pCO2 29.9 L ABG pO2 78.7 L ABG HCO3 17.1 L ABG O2 Saturation 95.6 ABG Base Excess -7.0 FiO2 40% Sodium Potassium Chloride Carbon Dioxide Anion Gap BUN Creatinine Est GFR ( Amer) Est GFR (Non-Af Amer) Glucose Lactic Acid Calcium Phosphorus Magnesium 1.7 Total Bilirubin AST ALT Alkaline Phosphatase Total Protein Albumin TSH Urine Color Urine Appearance Urine pH Ur Specific [place] Urine Protein Urine Glucose (UA) Urine Ketones Urine Blood Urine Nitrite Ur Leukocyte Esterase Urine WBC (Auto) Urine RBC (Auto) 09/26/18 09/26/18 09/26/18 07:03 07:03 07:03 WBC RBC Hgb Hct MCV MCH MCHC RDW Plt Count Seg Neutrophils % Lymphocytes % Monocytes % Eosinophils % Basophils % Absolute Neutrophils Absolute Lymphocytes Absolute Monocytes Absolute Eosinophils Absolute Basophils Carbonic Acid HCO3/H2CO3 Ratio ABG pH ABG pCO2 ABG pO2 ABG HCO3 ABG O2 Saturation ABG Base Excess FiO2 Sodium 136.4 L Potassium 5.0 Chloride 106 Carbon Dioxide 17 L Anion Gap 13 BUN 22 H Creatinine 1.86 H Est GFR ( Amer) 32 L Est GFR (Non-Af Amer) 26 L Glucose 374 H Lactic Acid 1.9 Calcium 8.1 L Phosphorus Magnesium Total Bilirubin 0.3 AST 26 ALT 24 Alkaline Phosphatase 95 Total Protein 5.4 L Albumin 2.9 L TSH 0.69 Urine Color Urine Appearance Urine pH Ur Specific [place] Urine Protein Urine Glucose (UA) Urine Ketones Urine Blood Urine Nitrite Ur Leukocyte Esterase Urine WBC (Auto) Urine RBC (Auto) 09/26/18 07:48 WBC 13.4 H RBC 3.53 L Hgb 9.6 L D Hct 29.5 L MCV 83 D MCH 27.1 MCHC 32.5 RDW 17.9 H Plt Count 197 Seg Neutrophils % 74.5 Lymphocytes % 15.2 Monocytes % 9.5 Eosinophils % 0.0 Basophils % 0.8 Absolute Neutrophils 10.0 H Absolute Lymphocytes 2.0 Absolute Monocytes 1.3 Absolute Eosinophils 0.0 Absolute Basophils 0.1 Carbonic Acid HCO3/H2CO3 Ratio ABG pH ABG pCO2 ABG pO2 ABG HCO3 ABG O2 Saturation ABG Base Excess FiO2 Sodium Potassium Chloride Carbon Dioxide Anion Gap BUN Creatinine Est GFR ( Amer) Est GFR (Non-Af Amer) Glucose Lactic Acid Calcium Phosphorus Magnesium Total Bilirubin AST ALT Alkaline Phosphatase Total Protein Albumin TSH Urine Color Urine Appearance Urine pH Ur Specific [place] Urine Protein Urine Glucose (UA) Urine Ketones Urine Blood Urine Nitrite Ur Leukocyte Esterase Urine WBC (Auto) Urine RBC (Auto) 09/25/18 09/25/18 09/25/18 17:42 19:00 19:00 Creatine Kinase 120 CK-MB (CK-2) 1.45 Troponin I 0.078 0.085 09/26/18 09/26/18 09/26/18 01:02 01:02 07:03 Creatine Kinase 240 H CK-MB (CK-2) 1.57 1.73 Troponin I 0.229 0.213 09/26/18 07:03 Creatine Kinase 422 H CK-MB (CK-2) Troponin I Impressions: Abdomen/Pelvis CT 09/25/18 00:00 IMPRESSION: Limited study without IV or oral contrast. No evidence of bowel obstruction. Right lung base atelectasis/consolidation with trace pleural effusion. Head CT 09/25/18 14:07 IMPRESSION: 1. Significantly motion degraded exam. No acute intracranial findings of the evaluated structures. 2. Mild chronic microvascular ischemic disease. EVIDENCE OF ACUTE STROKE: NO. Chest X-Ray 09/26/18 00:00 IMPRESSION: Shifting areas of airspace opacity. Appropriate lines and tubes. Assessment & Plan - Diagnosis (1) Non-STEMI (non-ST elevated myocardial infarction) Is this a current diagnosis for this admission?: Yes Plan: Patient has been started on therapeutic dose of Lovenox and Dr. Gauthier consulted for further evaluation and management. (2) Severe sepsis Is this a current diagnosis for this admission?: Yes Plan: Patient has altered mental status, leukocytosis and lactic acidosis. Zithromax and ceftriaxone discontinued and switched to cefepime and vancomycin. (3) AMS due to metabolic encephalopathy Is this a current diagnosis for this admission?: Yes Plan: Patient remains altered and currently she is intubated (4) Atrial fibrillation with RVR Is this a current diagnosis for this admission?: Yes Plan: Patient still tachycardic and in A. fib (5) DKA (diabetic ketoacidoses) Qualifiers: Diabetes mellitus type: type 2 Diabetes mellitus complication detail: with coma Qualified Code(s): E11.11 - Type 2 diabetes mellitus with ketoacidosis with coma Is this a current diagnosis for this admission?: Yes Plan: Resolving (6) R infra hilar PNA Is this a current diagnosis for this admission?: Yes Plan: Antibiotic switched to cefepime and vancomycin (7) Suspected new onset seizure Is this a current diagnosis for this admission?: Yes Plan: Patient is on as needed Ativan and Keppra (8) Hypertension Qualifiers: Hypertension type: essential hypertension Qualified Code(s): I10 - Essential (primary) hypertension Is this a current diagnosis for this admission?: Yes Plan: Continue her home medication (9) Morbid obesity with BMI of 40.0-44.9, adult Is this a current diagnosis for this admission?: Yes Plan: I would encourage the patient to do lifestyle modification. (10) Hyperlipidemia Qualifiers: Hyperlipidemia type: unspecified Qualified Code(s): E78.5 - Hyperlipidemia , unspecified Is this a current diagnosis for this admission?: Yes Plan: Continue Lipitor
[2018-09-26] MEDS: ENOXAPARIN SODIUM INJ 120 MG/0.8 ML DISP.SYRIN SUBCUT SCH ×2 (10:53→21:30)
[2018-09-26 11:50] LABS: ANION GAP 11 (5-19); BLOOD UREA NITROGEN 24 mg/dL (7-20); CALCIUM 7.8 mg/dL (8.4-10.2); CARBON DIOXIDE 17 mmol/L (22-30); CHLORIDE 108 mmol/L (98-107); GLUCOSE 257 mg/dL (75-110); POTASSIUM 4.8 mmol/L (3.6-5.0); SODIUM 135.9 mmol/L (137-145)
[2018-09-26 12:41] LABS: CREATINE KINASE MB 1.42 ng/mL (<4.55); TROPONIN I 0.18 ng/mL
--- NOTE | 2018-09-26 14:21 | PDOC CONSULTATION ---
Consultation Consult Date: 09/26/18 Attending physician:: LYDIA DUBON Consult reason:: Atrial fibrillation History of Present Illness Admission Date/PCP: 09/25/18 17:19 MARIAH MONROE MD Patient complains of: Currently intubated and sedated. History of Present Illness: SUSIE CARTER is a 78 year old female patient with past medical history of morbid obesity, hypertension, hyperlipidemia and diabetes mellitus brought by EMS for altered mental status. Since patient is obtunded or somehow postictal she is not able to give history. Brief history is obtained from the ER attending note and from her per her patient seemed to have a brief seizure-like activity this afternoon and he describes seizure activity as tonic-clonic and her eyes had rolled back. In route to hospital patient was given Ativan by EMS. Patient also noticed to have atrial fibrillation with rapid ventricular response. Her states that patient does not have history of cardiac arrhythmia and also I checked her medication list she is not on any rate control or anticoagulant medication. Her initial workup shows hyperglycemia with blood glucose of 643 mild leukocytosis WBC of 12.2 lactic acid 2.5 creatinine of 1.88 and her chest x-ray reported as right infrahilar pneumonia. Further detailed history and review of systems unobtainable. This history obtained by the hospitalist was reviewed and confirmed. No family member available and patient cannot give any history. Past Medical History Cardiac Medical History: Reports: Hypertension Endocrine Medical History: Reports: Diabetes Mellitus Type 2 Past Surgical History Past Surgical History: Reports: Orthopedic Surgery - Bilat knees, Tonsillectomy Social History Information Source: Patient Smoking Status: Unknown if Ever Smoked - Advance Directive Resuscitation Status: Full Code Surrogate healthcare decision maker:: Patient's Family History Family History: Hypertension Parental Family History Reviewed: Yes Children Family History Reviewed: Yes Sibling(s) Family History Reviewed.: Yes Medication/Allergy Home Medications: Allopurinol [Zyloprim 300 mg Tablet] 300 mg PO DAILY 09/26/18 Aspirin [Adult Low Dose Aspirin EC] 81 mg PO DAILY 09/26/18 Atorvastatin Calcium [Lipitor 80 mg Tablet] 80 mg PO QHS 09/26/18 Calcium Carbonate/Vitamin D3 [Calcium 500+D Tablet Chew] 1 tab.chew PO DAILY 10/03 Duloxetine HCl [Cymbalta] 60 mg PO DAILY 09/26/18 Gabapentin [Neurontin 300 mg Capsule] 300 mg PO 1900 09/26/18 Insulin Glargine,Hum.rec.anlog [Lantus Insulin 100 Unit/1 ml 10 ml] 50 unit SUBCUT QHS 09/26/18 Metoprolol Succinate [Toprol XL 100 mg Tablet] 100 mg PO DAILY 09/26/18 Multivit-Min/Iron/Folic/Lutein [Centrum Silver Women Tablet] 1 each PO DAILY 10/03 Nifedipine [Adalat CC 90 mg Tablet] 90 mg PO DAILY 09/26/18 Oxybutynin Chloride [Ditropan 5 Mg Tablet] 5 mg PO Q12 09/26/18 Pantoprazole Sodium [Protonix] 20 mg PO DAILY 09/26/18 Telmisartan [Micardis 80 mg Tablet] 80 mg PO DAILY 09/26/18 Allergies/Adverse Reactions: No Known Allergies Allergy (Unverified 09/17/12 19:45) Review of Systems ROS unobtainable: Due to endotracheal tube Physical Exam Vital Signs: Temp Pulse Resp BP Pulse Ox 101.3 F H 105 H 18 123/71 99 09/26/18 12:30 09/26/18 12:30 09/26/18 12:30 09/26/18 12:30 09/26/18 12:30 Intake & Output 09/25/18 09/26/18 09/27/18 06:59 06:59 06:59 Intake Total 2542 2992.5 Output Total 925 125 Balance 1617 2867.5 Weight 107.7 kg Exam: GENERAL: well-nourished and in no acute distress. Patient is intubated and sedated. Orientation cannot be checked HEAD: Atraumatic, normocephalic. EYES: Pupils equal round and reactive to light, extraocular movements could not be checked, sclera anicteric, conjunctiva are normal. ENT: TMs normal, nares patent, oropharynx clear without exudates. Moist mucous membranes. No oral ulcerations or bleeding gums noted NECK: supple without lymphadenopathy or JVD. Trachea is central. No cervical or axillary lymphadenopathy noted. Carotids are 2+ LUNGS: Breath sounds mostly clear to auscultation patient is noted to have bibasal crackles at the extreme bases CHEST: Palpation of the chest wall shows no significant chest wall tenderness or abnormalities. HEART: [place] OYSTER FISHERMAN, No PSH, 2/6 TRACY aortic area, 1/6 monte systolic murmur mitral area , no rubs or gallops. ABDOMEN: Soft, no significant tenderness appreciated, normoactive bowel sounds. No guarding, no rebound. No rigidity noted . No masses appreciated. EXTREMITIES: Pedal pulses are 1-2+, no calf tenderness noted, 1+ pedal edema noted. No clubbing or cyanosis. NEUROLOGICAL: The patient cannot participate in the neurological exam but no facial asymmetry noted. Extremities slightly hypotonic PSYCH: This cannot be evaluated. Patient cannot participate. SKIN: No significant ecchymosis, rash, or signs of pruritus noted. MUSCULOSKELETAL EXAM: No significant joint swelling noted. Patient cannot participate in musculoskeletal exam Results Laboratory Results: 09/26/18 07:48 09/26/18 11:19 09/25/18 09/25/18 09/25/18 17:20 19:00 19:46 WBC RBC Hgb Hct MCV MCH MCHC RDW Plt Count Seg Neutrophils % Lymphocytes % Monocytes % Eosinophils % Basophils % Absolute Neutrophils Absolute Lymphocytes Absolute Monocytes Absolute Eosinophils Absolute Basophils Carbonic Acid HCO3/H2CO3 Ratio ABG pH ABG pCO2 ABG pO2 ABG HCO3 ABG O2 Saturation ABG Base Excess FiO2 Sodium 142.7 Potassium 4.1 Chloride 106 Carbon Dioxide 19 L Anion Gap 18 BUN 24 H Creatinine 1.66 H Est GFR ( Amer) 36 L Est GFR (Non-Af Amer) 30 L Glucose 366 H Lactic Acid 5.2 H Calcium 8.8 Phosphorus 2.2 L Magnesium 1.4 L Total Bilirubin 0.4 AST 28 ALT 13 Alkaline Phosphatase 108 Total Protein 6.9 Albumin 3.7 TSH Urine Color STRAW Urine Appearance CLEAR Urine pH 5.0 Ur Specific [place] 1.017 Urine Protein 100 H Urine Glucose (UA) >=500 H Urine Ketones NEGATIVE Urine Blood SMALL H Urine Nitrite NEGATIVE Ur Leukocyte Esterase NEGATIVE Urine WBC (Auto) 0 Urine RBC (Auto) 1 09/25/18 09/25/18 09/26/18 20:18 22:46 02:55 WBC RBC Hgb Hct MCV MCH MCHC RDW Plt Count Seg Neutrophils % Lymphocytes % Monocytes % Eosinophils % Basophils % Absolute Neutrophils Absolute Lymphocytes Absolute Monocytes Absolute Eosinophils Absolute Basophils Carbonic Acid 1.19 HCO3/H2CO3 Ratio 16:1 ABG pH 7.32 L ABG pCO2 39.5 ABG pO2 69.9 L ABG HCO3 19.8 L ABG O2 Saturation 92.8 L ABG Base Excess -5.9 FiO2 60% Sodium 142.2 138.3 Potassium 4.5 4.7 Chloride 109 H 107 Carbon Dioxide 20 L 20 L Anion Gap 13 11 BUN 23 H 23 H Creatinine 1.69 H 1.79 H Est GFR ( Amer) 36 L 33 L Est GFR (Non-Af Amer) 29 L 27 L Glucose 149 H 218 H Lactic Acid Calcium 9.0 8.5 Phosphorus Magnesium Total Bilirubin AST ALT Alkaline Phosphatase Total Protein Albumin TSH Urine Color Urine Appearance Urine pH Ur Specific [place] Urine Protein Urine Glucose (UA) Urine Ketones Urine Blood Urine Nitrite Ur Leukocyte Esterase Urine WBC (Auto) Urine RBC (Auto) 09/26/18 09/26/18 09/26/18 05:41 07:03 07:03 WBC Cancelled RBC Cancelled Hgb Cancelled Hct Cancelled MCV Cancelled MCH Cancelled MCHC Cancelled RDW Cancelled Plt Count Cancelled Seg Neutrophils % Cancelled Lymphocytes % Cancelled Monocytes % Cancelled Eosinophils % Cancelled Basophils % Cancelled Absolute Neutrophils Cancelled Absolute Lymphocytes Cancelled Absolute Monocytes Cancelled Absolute Eosinophils Cancelled Absolute Basophils Cancelled Carbonic Acid 0.90 L HCO3/H2CO3 Ratio 19:1 ABG pH 7.38 ABG pCO2 29.9 L ABG pO2 78.7 L ABG HCO3 17.1 L ABG O2 Saturation 95.6 ABG Base Excess -7.0 FiO2 40% Sodium Potassium Chloride Carbon Dioxide Anion Gap BUN Creatinine Est GFR ( Amer) Est GFR (Non-Af Amer) Glucose Lactic Acid Calcium Phosphorus Magnesium 1.7 Total Bilirubin AST ALT Alkaline Phosphatase Total Protein Albumin TSH Urine Color Urine Appearance Urine pH Ur Specific [place] Urine Protein Urine Glucose (UA) Urine Ketones Urine Blood Urine Nitrite Ur Leukocyte Esterase Urine WBC (Auto) Urine RBC (Auto) 09/26/18 09/26/18 09/26/18 07:03 07:03 07:03 WBC RBC Hgb Hct MCV MCH MCHC RDW Plt Count Seg Neutrophils % Lymphocytes % Monocytes % Eosinophils % Basophils % Absolute Neutrophils Absolute Lymphocytes Absolute Monocytes Absolute Eosinophils Absolute Basophils Carbonic Acid HCO3/H2CO3 Ratio ABG pH ABG pCO2 ABG pO2 ABG HCO3 ABG O2 Saturation ABG Base Excess FiO2 Sodium 136.4 L Potassium 5.0 Chloride 106 Carbon Dioxide 17 L Anion Gap 13 BUN 22 H Creatinine 1.86 H Est GFR ( Amer) 32 L Est GFR (Non-Af Amer) 26 L Glucose 374 H Lactic Acid 1.9 Calcium 8.1 L Phosphorus Magnesium Total Bilirubin 0.3 AST 26 ALT 24 Alkaline Phosphatase 95 Total Protein 5.4 L Albumin 2.9 L TSH 0.69 Urine Color Urine Appearance Urine pH Ur Specific [place] Urine Protein Urine Glucose (UA) Urine Ketones Urine Blood Urine Nitrite Ur Leukocyte Esterase Urine WBC (Auto) Urine RBC (Auto) 09/26/18 09/26/18 09/26/18 07:48 11:19 11:19 WBC 13.4 H RBC 3.53 L Hgb 9.6 L D Hct 29.5 L MCV 83 D MCH 27.1 MCHC 32.5 RDW 17.9 H Plt Count 197 Seg Neutrophils % 74.5 Lymphocytes % 15.2 Monocytes % 9.5 Eosinophils % 0.0 Basophils % 0.8 Absolute Neutrophils 10.0 H Absolute Lymphocytes 2.0 Absolute Monocytes 1.3 Absolute Eosinophils 0.0 Absolute Basophils 0.1 Carbonic Acid HCO3/H2CO3 Ratio ABG pH ABG pCO2 ABG pO2 ABG HCO3 ABG O2 Saturation ABG Base Excess FiO2 Sodium 135.9 L Cancelled Potassium 4.8 Cancelled Chloride 108 H Cancelled Carbon Dioxide 17 L Cancelled Anion Gap 11 Cancelled BUN 24 H Cancelled Creatinine 1.78 H Cancelled Est GFR ( Amer) 33 L Cancelled Est GFR (Non-Af Amer) 28 L Cancelled Glucose 257 H Cancelled Lactic Acid Calcium 7.8 L Cancelled Phosphorus Magnesium Total Bilirubin AST ALT Alkaline Phosphatase Total Protein Albumin TSH Urine Color Urine Appearance Urine pH Ur Specific [place] Urine Protein Urine Glucose (UA) Urine Ketones Urine Blood Urine Nitrite Ur Leukocyte Esterase Urine WBC (Auto) Urine RBC (Auto) 09/25/18 09/25/18 09/25/18 17:42 19:00 19:00 Creatine Kinase 120 CK-MB (CK-2) 1.45 Troponin I 0.078 0.085 09/26/18 09/26/18 09/26/18 01:02 01:02 07:03 Creatine Kinase 240 H CK-MB (CK-2) 1.57 1.73 Troponin I 0.229 0.213 09/26/18 09/26/18 09/26/18 07:03 11:19 11:19 Creatine Kinase 422 H 405 H CK-MB (CK-2) 1.42 Troponin I 0.180 EKG Comments: Atrial fibrillation with rapid ventricular response but no acute ST-T wave changes are noted. Impressions: Abdomen/Pelvis CT 09/25/18 00:00 IMPRESSION: Limited study without IV or oral contrast. No evidence of bowel obstruction. Right lung base atelectasis/consolidation with trace pleural effusion. Head CT 09/25/18 14:07 IMPRESSION: 1. Significantly motion degraded exam. No acute intracranial findings of the evaluated structures. 2. Mild chronic microvascular ischemic disease. EVIDENCE OF ACUTE STROKE: NO. Chest X-Ray 09/26/18 00:00 IMPRESSION: Shifting areas of airspace opacity. Appropriate lines and tubes. Assessment & Plan - Diagnosis (1) Atrial fibrillation with RVR Is this a current diagnosis for this admission?: Yes (2) Hyperlipidemia Qualifiers: Hyperlipidemia type: unspecified Qualified Code(s): E78.5 - Hyperlipidemia , unspecified Is this a current diagnosis for this admission?: Yes (3) Hypertension Qualifiers: Hypertension type: essential hypertension Qualified Code(s): I10 - Essential (primary) hypertension Is this a current diagnosis for this admission?: Yes (4) Suspected new onset seizure Is this a current diagnosis for this admission?: Yes (5) Diabetic hyperosmolar coma Is this a current diagnosis for this admission?: Yes (6) Lactic acidosis Is this a current diagnosis for this admission?: Yes (7) Non-STEMI (non-ST elevated myocardial infarction) Is this a current diagnosis for this admission?: Yes (8) Elevated troponin I level Is this a current diagnosis for this admission?: Yes - Notes Notes: Atrial fibrillation with RVR: At this point recommend rate control. May consider chronic anticoagulation if there are no contraindication but I see there is good drop in hemoglobin. May need to rule out ongoing bleeding disorder before starting patient on Eliquis or other oral anticoagulant. Non-STEMI type II and elevated troponin I: Most likely related to metabolic reasons including hyperosmolar coma, atrial fibrillation with rapid ventricular response, sepsis, acidosis etc. Further evaluation with a nuclear stress test will be considered when patient is more stable and extubated. A 2D echo obtained will be reviewed. Diabetic hyperosmolar coma: Currently being expertly managed by hospitalist. Lactic acidosis: Possibly underlying sepsis which can precipitate hyperosmolar coma. However this is currently coming down. New onset seizures: Could be related to new stroke or could be related to hyperosmolar coma. Further evaluation will be needed. This may include an EEG , brain MRI CTA etc. Hypertension: Blood pressure goal should be liberal. Hyperlipidemia: Recommend high potency statin therapy. - Time Time Spent: 50 to 70 Minutes - CODE STATUS was discussed, patient remains full code. Surrogate decision-maker patient's . Multiple medical problems were addressed. More than 50% of the time spent coordinating care, discussing management plans with involved caregivers. Management plans discussed with involved personnels. Medical decision making was of moderate to high complexity , patient's has multiple comorbidities. Medications reviewed and adjusted accordingly: Yes
[2018-09-26] MEDS ORDERED: ACETAMINOPHEN SOLN 325 MG/10.15 ML UDCUP NG PRN (14:36)
[2018-09-26] MEDS: METOPROLOL TARTRATE PF/INJ 5 MG/5 ML SDV IV PRN (15:23)
[2018-09-26 17:56] LABS: HEMATOCRIT 30.9 % (36.0-47.0); HEMOGLOBIN 9.9 g/dL (12.0-15.5); MEAN CORPUSCULAR HEMOGLOBIN 27.1 pg (27.0-33.4); MEAN CORPUSCULAR HGB CONC 32.1 g/dL (32.0-36.0); MEAN CORPUSCULAR VOLUME 85 fl (80-97); PLATELET COUNT 191 10^3/uL (150-450); RED BLOOD COUNT 3.65 10^6/uL (3.72-5.28); RED CELL DISTRIBUTION WIDTH 18.1 % (11.5-14.0); WHITE BLOOD COUNT 14.6 10^3/uL (4.0-10.5)
[2018-09-26 18:15] LABS: ALANINE AMINOTRANSFERASE 24 U/L (9-52); ALBUMIN 2.6 g/dL (3.5-5.0); ALKALINE PHOSPHATASE 81 U/L (38-126); ANION GAP 14 (5-19); ASPARTATE AMINO TRANSFERASE 27 U/L (14-36); BILIRUBIN,DIRECT 0.4 mg/dL (0.0-0.4); BILIRUBIN,TOTAL 0.5 mg/dL (0.2-1.3); BLOOD UREA NITROGEN 24 mg/dL (7-20); CALCIUM 7.8 mg/dL (8.4-10.2); CARBON DIOXIDE 12 mmol/L (22-30); CHLORIDE 108 mmol/L (98-107); GLUCOSE 359 mg/dL (75-110); POTASSIUM 5.3 mmol/L (3.6-5.0); SODIUM 134.4 mmol/L (137-145); TOTAL PROTEIN 5.2 g/dL (6.3-8.2)
[2018-09-26] MEDS ORDERED: NORMAL SALINE 1000 ML 2,000 ML IV ONE (19:00)
[2018-09-26 19:22] LABS: ARTERIAL BLOOD BASE EXCESS -9.4 mmol/L; ARTERIAL BLOOD FIO2 40%; ARTERIAL BLOOD H2CO3 0.95 mmol/L (1.05-1.35); ARTERIAL BLOOD HCO3 15.7 mmol/L (20-24); ARTERIAL BLOOD O2 SATURATION 96.7 % (94-98); ARTERIAL BLOOD PCO2 31.4 mmHg (35-45); ARTERIAL BLOOD PH 7.32 (7.35-7.45); ARTERIAL BLOOD PO2 93.8 mmHg (80-100); ARTERIAL BLOOD TOTAL CO2 16.6 mmol/L (21-25)
[2018-09-26] MEDS ORDERED: INSULIN REG, HUMAN 100 UNIT/ML 3 ML VIAL (PYX) ONE (19:28)
[2018-09-26] MEDS ORDERED: PHOSPHORUS #1 250 MG TABLET NG ONE (19:41)
[2018-09-26] MEDS ORDERED: INSULIN, REGULAR 100 UNIT/100 ML NORMAL SALINE IV PRN ×4 (19:48→20:59)
[2018-09-26] MEDS ORDERED: NORMAL SALINE 1000 ML 1,000 ML IV SCH (20:00)
[2018-09-26] MEDS ORDERED: PANTOPRAZOLE SODIUM 40 MG VIAL IV PRN (20:36)
[2018-09-26] MEDS ORDERED: PANTOPRAZOLE SODIUM 40 MG in NORMAL SALINE 100 ML IV ONE (20:45)
[2018-09-26] MEDS: NORMAL SALINE 100 ML with PANTOPRAZOLE SODIUM 80 MG IV PRN ×2 (20:57)
[2018-09-26] MEDS: CEFEPIME 2 GM/D5W RTU 2 GM/50 ML RTUPB IV SCH (21:30)
[2018-09-26] MEDS ORDERED: INSULIN GLARGINE,HUM.REC.ANLOG 300 UNIT/3 ML INSULN.PEN SUBCUT SCH (22:00)
--- NOTE | 2018-09-26 22:06 | XCELERA REPORT ---
[address] [address] Transthoracic Echocardiogram Report Name: SUSIE CARTER Age: 78 yrs Gender: Female : 1940 Patient Status: Inpatient Patient Location: ICU^609^A Study Date: 09/26/2018 08:45 AM Height: 64 in Weight: 237 lb BSA: 2.1 m2 Procedure: A complete two-dimensional transthoracic echocardiogram was performed (2D, M-mode, spectral and color flow Doppler). The study was technically difficult with many images being suboptimal in quality. Reason For Study: new onset afib Ordering Physician: MARIAELENA ORTIZ Performed By: Gagandeep Hatfield Interpretation Summary The left ventricular ejection fraction is preserved. Consider additional methods to assess LVEF such as MUGA scan, CTA heart, cardiac MRI, AMTEO, etc. if clinically indicated. There is mild concentric left ventricular hypertrophy. The left ventricle is grossly normal size. LV diastolic function could not be adequately assessed. Regional wall motion abnormalities cannot be excluded due to limited visualization. The right ventricle is mildly dilated. The right ventricular systolic function is borderline reduced. The right atrium is mildly dilated. The left atrium is moderately dilated. A patent foramen ovale vs small ASD is felt to be present. There is a mild amount of mitral regurgitation There is no mitral valve stenosis. There is a mild amount of aortic regurgitation There is no aortic valve stenosis There is a trace or physiologic amount of tricuspid regurgitation Tricuspid regurgitation jet envelope not well defined to measure RV systolic pressure accurately. The aortic root is not well visualized but is probably normal size. The inferior vena cava appeared dilated and decreased < 50% with respiration (RAP 15-20 mmHg) There is no pericardial effusion. MMode/2D Measurements & Calculations RVDd: 2.7 cm LVIDd: 4.8 cm FS: 30.3 % Ao root diam: 3.3 cm IVSd: 1.3 cm LVIDs: 3.3 cm EDV(Teich): 107.4 ml Ao root area: 8.5 cm2 LVPWd: 1.2 cm ESV(Teich): 45.6 ml LA dimension: 4.5 cm EF(Teich): 57.5 % LVOT diam: 2.4 cm LVOT area: 4.4 cm2 Doppler Measurements & Calculations MV E max fatimah: MV P1/2t max fatimah: Ao V2 max: LV V1 max P.5 cm/sec 116.4 cm/sec 122.2 cm/sec 2.4 mmHg MV A max fatimah: MV P1/2t: 55.1 msec Ao max P.0 mmHgLV V1 max: 104.7 cm/sec MVA(P1/2t): 4.0 cm2 NIYA(V,D): 2.8 cm2 78.0 cm/sec MV E/A: 0.71 MV dec slope: 618.3 cm/sec2 MV dec time: 0.29 sec PA V2 max: PI end-d fatimah: MV P1/2t-pr_phl: 94.1 cm/sec 109.6 cm/sec 55.1 msec PA max P.6 mmHg Left Ventricle The left ventricle is grossly normal size. There is mild concentric left ventricular hypertrophy. The left ventricular ejection fraction is preserved. Consider additional methods to assess LVEF such as MUGA scan, CTA heart, cardiac MRI, MATEO, etc. if clinically indicated. LV diastolic function could not be adequately assessed. Regional wall motion abnormalities cannot be excluded due to limited visualization. Right Ventricle The right ventricle is mildly dilated. The right ventricular systolic function is borderline reduced. Atria The right atrium is mildly dilated. The left atrium is moderately dilated. A patent foramen ovale is present. Mitral Valve The mitral valve leaflets are sclerotic, but show no functional abnormalities. There is no mitral valve stenosis. There is a mild amount of mitral regurgitation. Aortic Valve The aortic valve is not well visualized secondary to technical limitations. There is no aortic valve stenosis. There is a mild amount of aortic regurgitation. Tricuspid Valve The tricuspid valve is not well visualized, but is grossly normal. There is no tricuspid stenosis. There is a trace or physiologic amount of tricuspid regurgitation. Tricuspid regurgitation jet envelope not well defined to measure RV systolic pressure accurately. Pulmonic Valve The pulmonic valve is not well visualized. There is a mild amount of pulmonic regurgitation. Great Vessels The aortic root is not well visualized but is probably normal size. The inferior vena cava appeared dilated and decreased < 50% with respiration (RAP 15-20 mmHg). Effusions There is no pericardial effusion. : MARIAELENA ORTIZ > Nati Gauthier
[2018-09-27 00:54] LABS: ANION GAP 10 (5-19); BLOOD UREA NITROGEN 25 mg/dL (7-20); CALCIUM 7.6 mg/dL (8.4-10.2); CARBON DIOXIDE 15 mmol/L (22-30); CHLORIDE 113 mmol/L (98-107); GLUCOSE 55 mg/dL (75-110); POTASSIUM 4.4 mmol/L (3.6-5.0); SODIUM 138.3 mmol/L (137-145)
[2018-09-27] MEDS: PROPOFOL 1,000 MG/100 ML INFUS..BTL IV PRN ×8 (01:26→23:13)
[2018-09-27] MEDS: NORMAL SALINE 1000 ML 1,000 ML IV PRN ×4 (01:26→21:58)
[2018-09-27] MEDS: DILTIAZEM HCL/D5W 125 MG/125 ML RTUINJ IV PRN (02:49)
[2018-09-27 06:26] LABS: APPEARANCE,URINE CLEAR; BILIRUBIN,URINE NEGATIVE (NEGATIVE); COLOR,URINE YELLOW; GLUCOSE, URINE NEGATIVE (NEGATIVE); KETONES,URINE NEGATIVE (NEGATIVE); LEUKOCYTE ESTERASE,URINE NEGATIVE (NEGATIVE); NITRITE,URINE NEGATIVE (NEGATIVE); PROTEIN,URINE 100 mg/dL (NEGATIVE); URINE SPECIFIC GRAVITY 1.013; UROBILINOGEN,URINE NEGATIVE mg/dL (<2.0)
--- NOTE | 2018-09-27 06:26 | RADIOLOGY REPORT (SQ) ---
EXAM DESCRIPTION: XR CHEST 1 VIEW COMPLETED DATE/TME: 09/27/2018 06:00 CLINICAL HISTORY: 78 years Female, pna/resp failure COMPARISON: One day prior. NUMBER OF VIEWS/TECHNIQUE: 1/AP FINDINGS: Moderate left lower lobar/retrocardiac opacity, moderate interstitial markings, moderate left aerated lung volume. Normal cardiac silhouette size. Atherosclerosis. Adequate appearing endotracheal tube. Likely adequate appearing enteric tube partially obscured. No pneumothorax. Stable bony thorax. IMPRESSION: No significant change.
[2018-09-27 06:37] LABS: HEMOGLOBIN 9.1 g/dL (12.0-15.5); MEAN CORPUSCULAR HEMOGLOBIN 27.4 pg (27.0-33.4); MEAN CORPUSCULAR HGB CONC 32.6 g/dL (32.0-36.0); MEAN CORPUSCULAR VOLUME 84 fl (80-97); PLATELET COUNT 159 10^3/uL (150-450); RED BLOOD COUNT 3.33 10^6/uL (3.72-5.28); RED CELL DISTRIBUTION WIDTH 17.9 % (11.5-14.0); WHITE BLOOD COUNT 12.2 10^3/uL (4.0-10.5)
[2018-09-27 06:44] LABS: ARTERIAL BLOOD BASE EXCESS -8.8 mmol/L; ARTERIAL BLOOD FIO2 35%; ARTERIAL BLOOD HCO3 15.2 mmol/L (20-24); ARTERIAL BLOOD O2 SATURATION 96.9 % (94-98); ARTERIAL BLOOD PCO2 26.7 mmHg (35-45); ARTERIAL BLOOD PH 7.37 (7.35-7.45); ARTERIAL BLOOD PO2 90.2 mmHg (80-100)
[2018-09-27 07:42] LABS: ALANINE AMINOTRANSFERASE 20 U/L (9-52); ALBUMIN 2.2 g/dL (3.5-5.0); ALKALINE PHOSPHATASE 71 U/L (38-126); ANION GAP 11 (5-19); ASPARTATE AMINO TRANSFERASE 23 U/L (14-36); BILIRUBIN,DIRECT 0.3 mg/dL (0.0-0.4); BILIRUBIN,TOTAL 0.3 mg/dL (0.2-1.3); BLOOD UREA NITROGEN 24 mg/dL (7-20); CALCIUM 7.4 mg/dL (8.4-10.2); CARBON DIOXIDE 12 mmol/L (22-30); CHLORIDE 114 mmol/L (98-107); GLUCOSE 184 mg/dL (75-110); POTASSIUM 4.5 mmol/L (3.6-5.0); TOTAL PROTEIN 4.6 g/dL (6.3-8.2)
[2018-09-27] MEDS ORDERED: FUROSEMIDE INJ/PF 40 MG/4 ML SDV IV ONE ×2 (08:30→16:15)
[2018-09-27] MEDS: MAGNESIUM SULFATE 1 GM/D5W 100 ML IV SCH ×2 (09:11→10:08)
--- NOTE | 2018-09-27 09:21 | PDOC PROGRESS REPORT ---
Subjective Subjective:: Progress Note for:: 09/26/18 Subjective:: This is 78 years old female patient with multiple comorbidities brought by EMS for altered mental status, and seizure-like activity witnessed by her . Her initial blood work shows hyperglycemia with blood sugar level of 643, lactic acidosis, A. fib with RVR and right hilar pneumonia. For her DKA patient has been started on insulin drip, for her A. fib Cardizem drip and follow pneumonia empirically she is started on Zithromax and ceftriaxone. Patient admitted with full inpatient status to medical intensive care unit. Overnight patient developed vomiting and the on-call physician intubated the patient to avoid aspiration and to protect her airway. Patient also spiked fever with T-max of 102.3. Her DKA has resolved. Patient is still in A. fib and tachycardic so the Cardizem drip is on. This morning her labs shows hemoglobin A1c of 9.1 troponin of 0.13 lactic acid of 1.9. Dr. Gauthier consulted for positive troponin and for possible new onset atrial fibrillation. And Dr. Palma also consulted. LP is requested since patient has altered mental status , fever and seizure-like activity. I escalated her antibiotics to IV cefepime and vancomycin. 09/27/18 This morning I seen patient lying in bed. She remained intubated and she is on full mechanical ventilator support. No significant event overnight. Her urine output is getting better her total 24-hour urine output is 1300 but her input is around 7 L and she has positive balance of 6 L. She is given a dose of 40 mg of IV Lasix. Her blood work shows that her white cell count is trending down from 14.6-12.2. But her lactic acid is up to 7.6. Her kidney infection improved after creatinine trended down from 1.88-1.752 sets of blood culture and tracheal aspirate are negative. I will continue her vancomycin and cefepime. Lumbar puncture is pending. Reason For Visit: ALTERED MENTAL STATUS DUE TO METABOLIC Physical Exam Vital Signs: Temp Pulse Resp BP Pulse Ox 98.2 F 88 18 115/70 100 09/27/18 08:00 09/27/18 08:00 09/27/18 08:00 09/27/18 08:00 09/27/18 08:00 Intake & Output 09/26/18 09/27/1809/28/18 06:59 06:59 06:59 Intake Total 2542 7709.0 Output Total 925 1360 250 Balance 1617 6349.0 -250 Weight 107.7 kg 113.5 kg General appearance: PRESENT: no acute distress Eye exam: PRESENT: conjunctiva pink Mouth exam: PRESENT: moist Neck exam: ABSENT: carotid bruit, JVD, lymphadenopathy, thyromegaly Respiratory exam: PRESENT: rales, rhonchi. ABSENT: wheezes Cardiovascular exam: PRESENT: irregular rhythm GI/Abdominal exam: PRESENT: normal bowel sounds, soft. ABSENT: distended, guarding, mass, organolmegaly, rebound, tenderness Results Laboratory Results: 09/27/18 06:30 09/27/18 06:30 09/26/18 09/26/18 09/26/18 11:19 11:19 14:59 WBC RBC Hgb Hct MCV MCH MCHC RDW Plt Count Carbonic Acid HCO3/H2CO3 Ratio ABG pH ABG pCO2 ABG pO2 ABG HCO3 ABG O2 Saturation ABG Base Excess FiO2 Sodium 135.9 L Cancelled Cancelled Potassium 4.8 Cancelled Cancelled Chloride 108 H Cancelled Cancelled Carbon Dioxide 17 L Cancelled Cancelled Anion Gap 11 Cancelled Cancelled BUN 24 H Cancelled Cancelled Creatinine 1.78 H Cancelled Cancelled Est GFR ( Amer) 33 L Cancelled Cancelled Est GFR (Non-Af Amer) 28 L Cancelled Cancelled Glucose 257 H Cancelled Cancelled Lactic Acid Calcium 7.8 L Cancelled Cancelled Magnesium Total Bilirubin Cancelled AST Cancelled ALT Cancelled Alkaline Phosphatase Cancelled Total Protein Cancelled Albumin Cancelled Urine Color Urine Appearance Urine pH Ur Specific [place] Urine Protein Urine Glucose (UA) Urine Ketones Urine Blood Urine Nitrite Ur Leukocyte Esterase Urine WBC (Auto) Urine RBC (Auto) 09/26/18 09/26/18 09/26/18 17:49 17:49 19:17 WBC 14.6 H RBC 3.65 L Hgb 9.9 L Hct 30.9 L MCV 85 MCH 27.1 MCHC 32.1 RDW 18.1 H Plt Count 191 Carbonic Acid 0.95 L HCO3/H2CO3 Ratio 16:1 ABG pH 7.32 L ABG pCO2 31.4 L ABG pO2 93.8 ABG HCO3 15.7 L ABG O2 Saturation 96.7 ABG Base Excess -9.4 FiO2 40% Sodium 134.4 L Potassium 5.3 H Chloride 108 H Carbon Dioxide 12 L Anion Gap 14 BUN 24 H Creatinine 1.88 H Est GFR ( Amer) 31 L Est GFR (Non-Af Amer) 26 L Glucose 359 H Lactic Acid Calcium 7.8 L Magnesium Total Bilirubin 0.5 AST 27 ALT 24 Alkaline Phosphatase 81 Total Protein 5.2 L Albumin 2.6 L Urine Color Urine Appearance Urine pH Ur Specific [place] Urine Protein Urine Glucose (UA) Urine Ketones Urine Blood Urine Nitrite Ur Leukocyte Esterase Urine WBC (Auto) Urine RBC (Auto) 09/27/18 09/27/18 09/27/18 00:25 06:08 06:08 WBC RBC Hgb Hct MCV MCH MCHC RDW Plt Count Carbonic Acid 0.80 L HCO3/H2CO3 Ratio 19:1 ABG pH 7.37 ABG pCO2 26.7 L ABG pO2 90.2 ABG HCO3 15.2 L ABG O2 Saturation 96.9 ABG Base Excess -8.8 FiO2 35% Sodium 138.3 Potassium 4.4 Chloride 113 H Carbon Dioxide 15 L Anion Gap 10 BUN 25 H Creatinine 1.75 H Est GFR ( Amer) 34 L Est GFR (Non-Af Amer) 28 L Glucose 55 L Lactic Acid Calcium 7.6 L Magnesium Total Bilirubin AST ALT Alkaline Phosphatase Total Protein Albumin Urine Color YELLOW Urine Appearance CLEAR Urine pH 5.0 Ur Specific [place] 1.013 Urine Protein 100 H Urine Glucose (UA) NEGATIVE Urine Ketones NEGATIVE Urine Blood MODERATE H Urine Nitrite NEGATIVE Ur Leukocyte Esterase NEGATIVE Urine WBC (Auto) 1 Urine RBC (Auto) 7 09/27/18 09/27/18 09/27/18 06:30 06:30 06:30 WBC 12.2 H RBC 3.33 L Hgb 9.1 L Hct 28.0 L MCV 84 MCH 27.4 MCHC 32.6 RDW 17.9 H Plt Count 159 Carbonic Acid HCO3/H2CO3 Ratio ABG pH ABG pCO2 ABG pO2 ABG HCO3 ABG O2 Saturation ABG Base Excess FiO2 Sodium 137.0 Potassium 4.5 Chloride 114 H Carbon Dioxide 12 L Anion Gap 11 BUN 24 H Creatinine 1.63 H Est GFR ( Amer) 37 L Est GFR (Non-Af Amer) 31 L Glucose 184 H Lactic Acid 0.8 Calcium 7.4 L Magnesium 1.5 L Total Bilirubin 0.3 AST 23 ALT 20 Alkaline Phosphatase 71 Total Protein 4.6 L Albumin 2.2 L Urine Color Urine Appearance Urine pH Ur Specific [place] Urine Protein Urine Glucose (UA) Urine Ketones Urine Blood Urine Nitrite Ur Leukocyte Esterase Urine WBC (Auto) Urine RBC (Auto) 09/25/18 09/25/18 09/25/18 17:42 19:00 19:00 Creatine Kinase 120 CK-MB (CK-2) 1.45 Troponin I 0.078 0.085 09/26/18 09/26/18 09/26/18 01:02 01:02 07:03 Creatine Kinase 240 H CK-MB (CK-2) 1.57 1.73 Troponin I 0.229 0.213 09/26/18 09/26/18 09/26/18 07:03 11:19 11:19 Creatine Kinase 422 H 405 H CK-MB (CK-2) 1.42 Troponin I 0.180 09/26/18 17:49 Creatine Kinase CK-MB (CK-2) Troponin I 0.125 Impressions: Abdomen/Pelvis CT 09/25/18 00:00 IMPRESSION: Limited study without IV or oral contrast. No evidence of bowel obstruction. Right lung base atelectasis/consolidation with trace pleural effusion. Head CT 09/25/18 14:07 IMPRESSION: 1. Significantly motion degraded exam. No acute intracranial findings of the evaluated structures. 2. Mild chronic microvascular ischemic disease. EVIDENCE OF ACUTE STROKE: NO. Chest X-Ray 09/27/18 06:00 IMPRESSION: No significant change. Assessment & Plan - Diagnosis (1) Acute kidney injury Is this a current diagnosis for this admission?: Yes Plan: Improving (2) Non-STEMI (non-ST elevated myocardial infarction) Is this a current diagnosis for this admission?: Yes Plan: Patient has been started on therapeutic dose of Lovenox and Dr. Gauthier consulted for further evaluation and management. (3) Severe sepsis Is this a current diagnosis for this admission?: Yes Plan: Patient has altered mental status, leukocytosis and lactic acidosis. Zithromax and ceftriaxone discontinued and switched to cefepime and vancomycin. (4) AMS due to metabolic encephalopathy Is this a current diagnosis for this admission?: Yes Plan: Patient remains altered and currently she is intubated (5) Atrial fibrillation with RVR Is this a current diagnosis for this admission?: Yes Plan: Patient still tachycardic and in A. fib (6) DKA (diabetic ketoacidoses) Qualifiers: Diabetes mellitus type: type 2 Diabetes mellitus complication detail: with coma Qualified Code(s): E11.11 - Type 2 diabetes mellitus with ketoacidosis with coma Is this a current diagnosis for this admission?: Yes Plan: Resolving (7) R infra hilar PNA Is this a current diagnosis for this admission?: Yes Plan: Antibiotic switched to cefepime and vancomycin (8) Suspected new onset seizure Is this a current diagnosis for this admission?: Yes Plan: Patient is on as needed Ativan and Keppra (9) Hypertension Qualifiers: Hypertension type: essential hypertension Qualified Code(s): I10 - Essential (primary) hypertension Is this a current diagnosis for this admission?: Yes Plan: Continue her home medication (10) Morbid obesity with BMI of 40.0-44.9, adult Is this a current diagnosis for this admission?: Yes Plan: I would encourage the patient to do lifestyle modification. (11) Hyperlipidemia Qualifiers: Hyperlipidemia type: unspecified Qualified Code(s): E78.5 - Hyperlipidemia , unspecified Is this a current diagnosis for this admission?: Yes Plan: Continue Lipitor
[2018-09-27] MEDS ORDERED: BISACODYL 10 MG SUPP.RECT PR PRN (09:42)
[2018-09-27] MEDS: NORMAL SALINE 100 ML with PANTOPRAZOLE SODIUM 80 MG IV PRN ×4 (09:51→19:07)
[2018-09-27] MEDS: CEFEPIME 2 GM/D5W RTU 2 GM/50 ML RTUPB IV SCH ×2 (10:08→21:57)
[2018-09-27] MEDS: LEVETIRACETAM 500 MG/NACL-ISO 500 MG/100 ML RTUPB IV SCH ×2 (10:08→21:57)
[2018-09-27] MEDS: ENOXAPARIN SODIUM INJ 120 MG/0.8 ML DISP.SYRIN SUBCUT SCH ×2 (10:09→22:01)
[2018-09-27 10:49] LABS: INTERNATIONAL RATION (INR) 1.31; PROTHROMBIN TIME 16.9 SEC (11.4-15.4)
[2018-09-27 10:50] LABS: PARTIAL THROMBOPLASTIN TIME 42.3 SEC (23.5-35.8)
[2018-09-27] MEDS: VANCOMYCIN HCL 1,250 MG in DEXTROSE 5%-WATER 250 ML IV SCH (11:57)
[2018-09-27] MEDS ORDERED: VANCOMYCIN HCL 750 MG in DEXTROSE 5%-WATER 250 ML IV SCH (12:00)
[2018-09-27 12:17] LABS: ANION GAP 9 (5-19); BLOOD UREA NITROGEN 24 mg/dL (7-20); CALCIUM 7.6 mg/dL (8.4-10.2); CARBON DIOXIDE 16 mmol/L (22-30); CHLORIDE 112 mmol/L (98-107); GLUCOSE 238 mg/dL (75-110); POTASSIUM 4.5 mmol/L (3.6-5.0); SODIUM 136.5 mmol/L (137-145)
[2018-09-27] MEDS: LORAZEPAM INJ 2 MG/1 ML VIAL IV PRN (12:48)
[2018-09-27] MEDS: INSULIN LISPRO 100 UNIT/ML 3 ML VIAL SUBCUT PRN ×2 (13:15→15:27)
[2018-09-27] MEDS: FENTANYL CITRATE INJ/PF 100 MCG/2 ML AMPUL IV PRN (13:55)
--- NOTE | 2018-09-27 15:17 | RADIOLOGY REPORT (SQ) ---
EXAM DESCRIPTION: LUMBAR PUNCTURE; FLUORO/NEEDLE PLACEMENT/SPINE COMPLETED DATE/TIME: 09/27/2018 2:47 pm REASON FOR STUDY: AMS, fever; AMS, FEVER COMPARISON: None. FLUOROSCOPY TIME: 13 seconds 1 digital radiographic image saved to PACS. TECHNIQUE: Fluoroscopic guided lumbar puncture. LIMITATIONS: None. PROCEDURE: After written consent and assessment were obtained, the patient was brought into the fluo roscopy room and placed prone on the table. The patient's lower back was prepped in a sterile fashio n and an entry site was selected under live fluoroscopic guidance. The entry site was anesthetized wi th 1% lidocaine. A 22 gauge spinal needle was advanced through the skin and into the thecal sac at th e left paracentral L4-5 level. After approximately 9 ml was drained, the needle was removed and a st erile bandage was placed of the site. Specimens were sent to the lab for testing. A fluoroscopic sp ot image was saved to PACS confirming level access. FINDINGS: Clear CSF, sent for testing as per the hospitalist physician. Normal opening pressure of 20 cm of water IMPRESSION: Lumbar puncture under fluoroscopy. No immediate complication. CSF laboratory studies a re pending COMMENT: Patient medication list reviewed: Yes- Quality ID# [id number]:Eligible professional attests to doc umenting in the medical record they obtained, updated, or reviewed the patient's current medications. . Quality ID 145: Final reports for procedures using fluoroscopy that document radiation exposure john charles, or exposure time and number of fluorographic images (if radiation exposure indices are not avail able) TECHNICAL DOCUMENTATION: JOB ID: [id number] [employer]- All Rights Reserved Reading location - IP/workstation name: [email or web address]
--- NOTE | 2018-09-27 15:17 | RADIOLOGY REPORT (SQ) ---
EXAM DESCRIPTION: LUMBAR PUNCTURE; FLUORO/NEEDLE PLACEMENT/SPINE COMPLETED DATE/TIME: 09/27/2018 2:47 pm REASON FOR STUDY: AMS, fever; AMS, FEVER COMPARISON: None. FLUOROSCOPY TIME: 13 seconds 1 digital radiographic image saved to PACS. TECHNIQUE: Fluoroscopic guided lumbar puncture. LIMITATIONS: None. PROCEDURE: After written consent and assessment were obtained, the patient was brought into the fluo roscopy room and placed prone on the table. The patient's lower back was prepped in a sterile fashio n and an entry site was selected under live fluoroscopic guidance. The entry site was anesthetized wi th 1% lidocaine. A 22 gauge spinal needle was advanced through the skin and into the thecal sac at th e left paracentral L4-5 level. After approximately 9 ml was drained, the needle was removed and a st erile bandage was placed of the site. Specimens were sent to the lab for testing. A fluoroscopic sp ot image was saved to PACS confirming level access. FINDINGS: Clear CSF, sent for testing as per the hospitalist physician. Normal opening pressure of 20 cm of water IMPRESSION: Lumbar puncture under fluoroscopy. No immediate complication. CSF laboratory studies a re pending COMMENT: Patient medication list reviewed: Yes- Quality ID# [id number]:Eligible professional attests to doc umenting in the medical record they obtained, updated, or reviewed the patient's current medications. . Quality ID 145: Final reports for procedures using fluoroscopy that document radiation exposure john charles, or exposure time and number of fluorographic images (if radiation exposure indices are not avail able) TECHNICAL DOCUMENTATION: JOB ID: [id number] [employer]- All Rights Reserved Reading location - IP/workstation name: [email or web address]
[2018-09-27 15:30] LABS: APPEARANCE ALL TUBES CLEAR; COLOR ALL TUBES COLORLESS; CSF TUBE NUMBER 3; RED BLOOD CELL,CSF 0 /uL (0-10); WHITE BLOOD CELL,CSF 24 /uL (0-5)
[2018-09-27 15:39] LABS: GLUCOSE,CSF 125 mg/dL (40-70); PROTEIN,CSF 78 mg/dL (12-60)
[2018-09-27 16:10] LABS: MONONUCLEAR CELLS CSF 3 %
[2018-09-27 18:52] LABS: ANION GAP 10 (5-19); BLOOD UREA NITROGEN 25 mg/dL (7-20); CALCIUM 7.8 mg/dL (8.4-10.2); CARBON DIOXIDE 16 mmol/L (22-30); CHLORIDE 112 mmol/L (98-107); GLUCOSE 170 mg/dL (75-110); POTASSIUM 4.7 mmol/L (3.6-5.0); SODIUM 138.3 mmol/L (137-145)
--- NOTE | 2018-09-27 20:07 | PDOC PROGRESS REPORT ---
Subjective Progress Note for:: 09/27/18 Subjective:: Patient about the same and has made very little progress. There is no significant change in general condition. Patient noted to be responsive to pain but she is under sedation. Patient remains intubated, sedated, patient however looks comfortable and in acute distress. Medications reviewed. Reason For Visit: ALTERED MENTAL STATUS DUE TO METABOLIC Physical Exam Vital Signs: Temp Pulse Resp BP Pulse Ox 97.2 F 91 18 105/62 100 09/27/18 18:14 09/27/18 18:00 09/27/18 18:14 09/27/18 18:14 09/27/18 18:14 Intake & Output 09/26/18 09/27/18 09/28/18 06:59 06:59 06:59 Intake Total 2542 7809.0 1431 Output Total 925 1360 2375 Balance 1617 6449.0 -944 Weight 107.7 kg 113.5 kg Exam: GENERAL: well-nourished and in no acute distress. Patient is intubated and sedated. Orientation cannot be checked HEAD: Atraumatic, normocephalic. EYES: Pupils equal round and reactive to light, extraocular movements could not be checked, sclera anicteric, conjunctiva are normal. ENT: TMs normal, nares patent, oropharynx clear without exudates. Moist mucous membranes. No oral ulcerations or bleeding gums noted NECK: supple without lymphadenopathy or JVD. Trachea is central. No cervical or axillary lymphadenopathy noted. Carotids are 2+ LUNGS: Breath sounds mostly clear to auscultation patient is noted to have bibasal crackles at the extreme bases CHEST: Palpation of the chest wall shows no significant chest wall tenderness or abnormalities. HEART: [place] [employer], No PSH, 2/6 TRACY aortic area, 1/6 monte systolic murmur mitral area , no rubs or gallops. ABDOMEN: Soft, no significant tenderness appreciated, normoactive bowel sounds. No guarding, no rebound. No rigidity noted . No masses appreciated. EXTREMITIES: Pedal pulses are 1-2+, no calf tenderness noted, 1+ pedal edema noted. No clubbing or cyanosis. NEUROLOGICAL: The patient cannot participate in the neurological exam but no facial asymmetry noted. Extremities slightly hypotonic PSYCH: This cannot be evaluated. Patient cannot participate. SKIN: No significant ecchymosis, rash, or signs of pruritus noted. MUSCULOSKELETAL EXAM: No significant joint swelling noted. Patient cannot participate in musculoskeletal exam Results Laboratory Results: 09/27/18 06:30 09/27/18 18:25 09/27/18 09/27/18 09/27/18 00:25 06:08 06:08 WBC RBC Hgb Hct MCV MCH MCHC RDW Plt Count Carbonic Acid 0.80 L HCO3/H2CO3 Ratio 19:1 ABG pH 7.37 ABG pCO2 26.7 L ABG pO2 90.2 ABG HCO3 15.2 L ABG O2 Saturation 96.9 ABG Base Excess -8.8 FiO2 35% Sodium 138.3 Potassium 4.4 Chloride 113 H Carbon Dioxide 15 L Anion Gap 10 BUN 25 H Creatinine 1.75 H Est GFR ( Amer) 34 L Est GFR (Non-Af Amer) 28 L Glucose 55 L Lactic Acid Calcium 7.6 L Magnesium Total Bilirubin AST ALT Alkaline Phosphatase Total Protein Albumin Urine Color YELLOW Urine Appearance CLEAR Urine pH 5.0 Ur Specific [place] 1.013 Urine Protein 100 H Urine Glucose (UA) NEGATIVE Urine Ketones NEGATIVE Urine Blood MODERATE H Urine Nitrite NEGATIVE Ur Leukocyte Esterase NEGATIVE Urine WBC (Auto) 1 Urine RBC (Auto) 7 Fluid Tube Number CSF Volume CSF Appearance CSF Color CSF WBC CSF RBC CSF Glucose CSF Total Protein Stool Occult Blood 09/27/18 09/27/18 09/27/18 06:30 06:30 06:30 WBC 12.2 H RBC 3.33 L Hgb 9.1 L Hct 28.0 L MCV 84 MCH 27.4 MCHC 32.6 RDW 17.9 H Plt Count 159 Carbonic Acid HCO3/H2CO3 Ratio ABG pH ABG pCO2 ABG pO2 ABG HCO3 ABG O2 Saturation ABG Base Excess FiO2 Sodium 137.0 Potassium 4.5 Chloride 114 H Carbon Dioxide 12 L Anion Gap 11 BUN 24 H Creatinine 1.63 H Est GFR ( Amer) 37 L Est GFR (Non-Af Amer) 31 L Glucose 184 H Lactic Acid 0.8 Calcium 7.4 L Magnesium 1.5 L Total Bilirubin 0.3 AST 23 ALT 20 Alkaline Phosphatase 71 Total Protein 4.6 L Albumin 2.2 L Urine Color Urine Appearance Urine pH Ur Specific [place] Urine Protein Urine Glucose (UA) Urine Ketones Urine Blood Urine Nitrite Ur Leukocyte Esterase Urine WBC (Auto) Urine RBC (Auto) Fluid Tube Number CSF Volume CSF Appearance CSF Color CSF WBC CSF RBC CSF Glucose CSF Total Protein Stool Occult Blood 09/27/18 09/27/18 09/27/18 10:28 11:54 11:54 WBC RBC Hgb Hct MCV MCH MCHC RDW Plt Count Carbonic Acid HCO3/H2CO3 Ratio ABG pH ABG pCO2 ABG pO2 ABG HCO3 ABG O2 Saturation ABG Base Excess FiO2 Sodium 136.5 L Potassium 4.5 Chloride 112 H Carbon Dioxide 16 L Anion Gap 9 BUN 24 H Creatinine 1.59 H Est GFR ( Amer) 38 L Est GFR (Non-Af Amer) 31 L Glucose 238 H Lactic Acid 0.8 Calcium 7.6 L Magnesium Total Bilirubin AST ALT Alkaline Phosphatase Total Protein Albumin 2.5 L Urine Color Urine Appearance Urine pH Ur Specific [place] Urine Protein Urine Glucose (UA) Urine Ketones Urine Blood Urine Nitrite Ur Leukocyte Esterase Urine WBC (Auto) Urine RBC (Auto) Fluid Tube Number CSF Volume CSF Appearance CSF Color CSF WBC CSF RBC CSF Glucose CSF Total Protein Stool Occult Blood 09/27/18 09/27/18 09/27/18 14:28 14:28 15:02 WBC RBC Hgb Hct MCV MCH MCHC RDW Plt Count Carbonic Acid HCO3/H2CO3 Ratio ABG pH ABG pCO2 ABG pO2 ABG HCO3 ABG O2 Saturation ABG Base Excess FiO2 Sodium Potassium Chloride Carbon Dioxide Anion Gap BUN Creatinine Est GFR ( Amer) Est GFR (Non-Af Amer) Glucose Lactic Acid Calcium Magnesium Total Bilirubin AST ALT Alkaline Phosphatase Total Protein Albumin Urine Color Urine Appearance Urine pH Ur Specific [place] Urine Protein Urine Glucose (UA) Urine Ketones Urine Blood Urine Nitrite Ur Leukocyte Esterase Urine WBC (Auto) Urine RBC (Auto) Fluid Tube Number 3 CSF Volume 9.0 CSF Appearance CLEAR CSF Color COLORLESS CSF WBC 24 H CSF RBC 0 CSF Glucose 125 H CSF Total Protein 78 H Stool Occult Blood NEGATIVE 09/27/18 18:25 WBC RBC Hgb Hct MCV MCH MCHC RDW Plt Count Carbonic Acid HCO3/H2CO3 Ratio ABG pH ABG pCO2 ABG pO2 ABG HCO3 ABG O2 Saturation ABG Base Excess FiO2 Sodium 138.3 Potassium 4.7 Chloride 112 H Carbon Dioxide 16 L Anion Gap 10 BUN 25 H Creatinine 1.63 H Est GFR ( Amer) 37 L Est GFR (Non-Af Amer) 31 L Glucose 170 H Lactic Acid Calcium 7.8 L Magnesium 1.9 Total Bilirubin AST ALT Alkaline Phosphatase Total Protein Albumin Urine Color Urine Appearance Urine pH Ur Specific [place] Urine Protein Urine Glucose (UA) Urine Ketones Urine Blood Urine Nitrite Ur Leukocyte Esterase Urine WBC (Auto) Urine RBC (Auto) Fluid Tube Number CSF Volume CSF Appearance CSF Color CSF WBC CSF RBC CSF Glucose CSF Total Protein Stool Occult Blood 09/25/18 17:20 Catheterized Urine Urine Culture - Final NO GROWTH 2 DAYS 09/25/18 09/25/18 09/25/18 17:42 19:00 19:00 Creatine Kinase 120 CK-MB (CK-2) 1.45 Troponin I 0.078 0.085 09/26/18 09/26/18 09/26/18 01:02 01:02 07:03 Creatine Kinase 240 H CK-MB (CK-2) 1.57 1.73 Troponin I 0.229 0.213 09/26/18 09/26/18 09/26/18 07:03 11:19 11:19 Creatine Kinase 422 H 405 H CK-MB (CK-2) 1.42 Troponin I 0.180 09/26/18 17:49 Creatine Kinase CK-MB (CK-2) Troponin I 0.125 EKG Comments: Atrial fibrillation with controlled ventricular response Impressions: Abdomen/Pelvis CT 09/25/18 00:00 IMPRESSION: Limited study without IV or oral contrast. No evidence of bowel obstruction. Right lung base atelectasis/consolidation with trace pleural effusion. Head CT 09/25/18 14:07 IMPRESSION: 1. Significantly motion degraded exam. No acute intracranial findings of the evaluated structures. 2. Mild chronic microvascular ischemic disease. EVIDENCE OF ACUTE STROKE: NO. Guidance Fluoroscopy 09/27/18 00:00 IMPRESSION: Lumbar puncture under fluoroscopy. No immediate complication. CSF laboratory studies are pending Lumbar Puncture 09/27/18 00:00 IMPRESSION: Lumbar puncture under fluoroscopy. No immediate complication. CSF laboratory studies are pending Chest X-Ray 09/27/18 06:00 IMPRESSION: No significant change. Assessment & Plan - Diagnosis (1) Atrial fibrillation with RVR Is this a current diagnosis for this admission?: Yes (2) Hyperlipidemia Qualifiers: Hyperlipidemia type: unspecified Qualified Code(s): E78.5 - Hyperlipidemia , unspecified Is this a current diagnosis for this admission?: Yes (3) Hypertension Qualifiers: Hypertension type: essential hypertension Qualified Code(s): I10 - Essential (primary) hypertension Is this a current diagnosis for this admission?: Yes (4) Suspected new onset seizure Is this a current diagnosis for this admission?: Yes (5) Diabetic hyperosmolar coma Is this a current diagnosis for this admission?: Yes (6) Lactic acidosis Is this a current diagnosis for this admission?: Yes (7) Non-STEMI (non-ST elevated myocardial infarction) Is this a current diagnosis for this admission?: Yes (8) Elevated troponin I level Is this a current diagnosis for this admission?: Yes - Notes Notes: Atrial fibrillation with RVR: Continue with rate control. May consider chronic anticoagulation if there are no contraindication but I see there is good drop in hemoglobin. May need to rule out ongoing bleeding disorder before starting patient on Eliquis or other oral anticoagulant. Non-STEMI type II and elevated troponin I: Most likely related to metabolic reasons including hyperosmolar coma, atrial fibrillation with rapid ventricular response, sepsis, acidosis etc. Further evaluation with a nuclear stress test will be considered when patient is more stable and extubated. 2D echo shows well-preserved LVEF. RV seems mildly enlarged. Diabetic hyperosmolar coma: Currently being expertly managed by hospitalist. Lactic acidosis: Possibly underlying sepsis which can precipitate hyperosmolar coma. However this is currently coming down and seems resolved.. New onset seizures: Could be related to new stroke or could be related to hyperosmolar coma. Further evaluation will be needed. This may include an EEG , brain MRI CTA etc. Hypertension: Blood pressure goal should be liberal. Hyperlipidemia: Recommend high potency statin therapy. - Time Time with patient: Greater than 35 minutes - More than 50% of the time spent coordinating care, discussing management plans with involved caregivers. Management plans discussed with involved personnels. Medical decision making was of moderate to high complexity, patient's has multiple comorbidities. Medications reviewed and adjusted accordingly: Yes
--- NOTE | 2018-09-27 20:11 | EKG REPORT ---
SEVERITY:- ABNORMAL ECG - ATRIAL FIBRILLATION BORDERLINE PROLONGED QT INTERVAL : Confirmed by: Nati Gauthier 27-Sep-2018 20:10:42
[2018-09-27] MEDS ORDERED: INSULIN GLARGINE,HUM.REC.ANLOG 1,000 UNIT/10 ML UNIT SUBCUT ONE (22:00)
[2018-09-27] MEDS: INSULIN GLARGINE,HUM.REC.ANLOG 300 UNIT/3 ML INSULN.PEN SUBCUT SCH (22:35)
[2018-09-28 00:45] LABS: ANION GAP 11 (5-19); BLOOD UREA NITROGEN 26 mg/dL (7-20); CALCIUM 7.9 mg/dL (8.4-10.2); CARBON DIOXIDE 15 mmol/L (22-30); CHLORIDE 112 mmol/L (98-107); GLUCOSE 183 mg/dL (75-110); POTASSIUM 4.8 mmol/L (3.6-5.0)
[2018-09-28] MEDS: PROPOFOL 1,000 MG/100 ML INFUS..BTL IV PRN ×5 (02:53→18:49)
[2018-09-28] MEDS: NORMAL SALINE 1000 ML 1,000 ML IV PRN ×3 (05:44→18:49)
[2018-09-28] MEDS: NORMAL SALINE 100 ML with PANTOPRAZOLE SODIUM 80 MG IV PRN ×2 (05:45)
[2018-09-28 06:04] LABS: ARTERIAL BLOOD BASE EXCESS -8.6 mmol/L; ARTERIAL BLOOD FIO2 30%; ARTERIAL BLOOD H2CO3 0.86 mmol/L (1.05-1.35); ARTERIAL BLOOD HCO3 15.6 mmol/L (20-24); ARTERIAL BLOOD O2 SATURATION 94.4 % (94-98); ARTERIAL BLOOD PCO2 28.5 mmHg (35-45); ARTERIAL BLOOD PH 7.36 (7.35-7.45); ARTERIAL BLOOD PO2 72.9 mmHg (80-100); ARTERIAL BLOOD TOTAL CO2 16.5 mmol/L (21-25)
[2018-09-28 06:34] LABS: ABSOLUTE BASOPHILS # (AUTO) 0.2 10^3/uL (0.0-0.2); ABSOLUTE EOSINOPHILS # (AUTO) 0.5 10^3/uL (0.0-0.6); ABSOLUTE LYMPHOCYTES (AUTO) 1.8 10^3/uL (0.5-4.7); ABSOLUTE MONOCYTES (AUTO) 1.1 10^3/uL (0.1-1.4); ABSOLUTE NEUT (AUTO) 7.4 10^3/uL (1.7-8.2); BASOPHILS % (AUTO) 1.7 % (0-2); EOSINOPHILS % (AUTO) 4.8 % (0-6); HEMATOCRIT 31.4 % (36.0-47.0); HEMOGLOBIN 10.3 g/dL (12.0-15.5); LYMPHOCYTES % (AUTO) 16.7 % (13-45); MEAN CORPUSCULAR HEMOGLOBIN 27.5 pg (27.0-33.4); MEAN CORPUSCULAR HGB CONC 32.7 g/dL (32.0-36.0); MEAN CORPUSCULAR VOLUME 84 fl (80-97); MONOCYTES % (AUTO) 9.8 % (3-13); PLATELET COUNT 178 10^3/uL (150-450); RED BLOOD COUNT 3.74 10^6/uL (3.72-5.28); RED CELL DISTRIBUTION WIDTH 18.2 % (11.5-14.0); TOTAL CELLS COUNTED % (AUTO) 100 %
--- NOTE | 2018-09-28 06:38 | RADIOLOGY REPORT (SQ) ---
EXAM DESCRIPTION: XR CHEST 1 VIEW COMPLETED DATE/TME: 09/28/2018 06:00 CLINICAL HISTORY: 78 years, Female, resp failure COMPARISON: 09/27/2018 chest x-ray NUMBER OF VIEWS: 1 TECHNIQUE: Frontal view the chest LIMITATIONS: None. FINDINGS: Stable cardiomegaly. Endotracheal and enteric tubes remain in place. Atheromatous change of the thoracic aorta. Interstitial edema with small bibasilar effusions. No pneumothorax. IMPRESSION: Cardiomegaly with interstitial edema and small bibasilar effusions. Endotracheal and enteric tubes are in place 2010 [employer]- All Rights Reserved
[2018-09-28] MEDS: DILTIAZEM HCL/D5W 125 MG/125 ML RTUINJ IV PRN (07:31)
[2018-09-28 07:37] LABS: ALANINE AMINOTRANSFERASE 21 U/L (9-52); ALBUMIN 2.3 g/dL (3.5-5.0); ALKALINE PHOSPHATASE 76 U/L (38-126); ANION GAP 9 (5-19); ASPARTATE AMINO TRANSFERASE 26 U/L (14-36); BILIRUBIN,DIRECT 0.3 mg/dL (0.0-0.4); BILIRUBIN,TOTAL 0.3 mg/dL (0.2-1.3); BLOOD UREA NITROGEN 24 mg/dL (7-20); CALCIUM 7.7 mg/dL (8.4-10.2); CARBON DIOXIDE 14 mmol/L (22-30); CHLORIDE 115 mmol/L (98-107); GLUCOSE 152 mg/dL (75-110); POTASSIUM 4.6 mmol/L (3.6-5.0); TOTAL PROTEIN 4.8 g/dL (6.3-8.2)
[2018-09-28] MEDS: FENTANYL CITRATE INJ/PF 100 MCG/2 ML AMPUL IV PRN ×2 (10:00→13:51)
--- NOTE | 2018-09-28 10:00 | EKG REPORT ---
SEVERITY:- ABNORMAL ECG - ATRIAL FIBRILLATION, V-RATE 78-147 BORDERLINE T ABNORMALITIES, INFERIOR LEADS : Confirmed by: Nati Gauthier 28-Sep-2018 09:59:46
--- NOTE | 2018-09-28 11:02 | Operative Report ---
Bedside Procedure - History of Present Illness Indication for Procedure: venous acess Date: 09/28/18 Surgeon: FREDIS SHANNON - Central Line Right Internal jugular Time completed: 11:02 Consent obtained: Yes Central line pre-insertion: Sterile PPE donned, Betadine prep applied, Chloraprep applied, Sterile drapes applied Central line lumen type: Triple Anesthetic type: 1% Lidocaine Ultrasound guided: Yes Line secured with sutures: Yes Central line post-insertion: Blood return from lumens, Biopatch applied, Sutured , Sterile dressing applied, Position confirmed w/ CXR Complications: No
[2018-09-28] MEDS ORDERED: NORMAL SALINE INJ/PF 0.9% 10 ML SDV IV PRN ×2 (11:30→11:48)
[2018-09-28] MEDS: ENOXAPARIN SODIUM INJ 120 MG/0.8 ML DISP.SYRIN SUBCUT SCH (11:39)
[2018-09-28] MEDS: CEFEPIME 2 GM/D5W RTU 2 GM/50 ML RTUPB IV SCH ×2 (11:39→22:31)
[2018-09-28] MEDS: LEVETIRACETAM 500 MG/NACL-ISO 500 MG/100 ML RTUPB IV SCH ×2 (11:39→22:31)
--- NOTE | 2018-09-28 11:40 | RADIOLOGY REPORT (SQ) ---
EXAM DESCRIPTION: CHEST SINGLE VIEW COMPLETED DATE/TIME: 09/28/2018 11:16 am REASON FOR STUDY: central line COMPARISON: Chest films 09/28/2018, 09/27/2018, 09/26/2018, 09/25/2018 EXAM PARAMETERS: NUMBER OF VIEWS: One view. TECHNIQUE: Single frontal radiographic view of the chest acquired. RADIATION DOSE: NA LIMITATIONS: None. FINDINGS: LUNGS AND PLEURA: No gross infiltrates. No pleural effusion or pneumothorax MEDIASTINUM AND HILAR STRUCTURES: No masses. Contour normal. HEART AND VASCULAR STRUCTURES: Stable mild cardiomegaly BONES: No acute findings. HARDWARE: Endotracheal tube tip 5 cm above the danny. Nasogastric tube tip and side port in the sto mach. Right jugular central line tip superior vena cava. OTHER: No other significant finding. IMPRESSION: Interval placement of a right jugular central line with the tip in the superior vena cav a. No pneumothorax. Endotracheal and nasogastric tubes in good positioning. No acute pulmonary infiltrates. TECHNICAL DOCUMENTATION: JOB ID: [id number] [employer]- All Rights Reserved Reading location - IP/workstation name: [email or web address]
[2018-09-28] MEDS: VANCOMYCIN HCL 1,250 MG in DEXTROSE 5%-WATER 250 ML IV SCH (12:13)
--- NOTE | 2018-09-28 12:51 | PDOC PROGRESS REPORT ---
Subjective Progress Note for:: 09/28/18 Subjective:: Patient still intubated and sedated She just had a central line inserted today When discontinuing sedation was attempted, she was agitated and posturing but she did not wake up Reason For Visit: ALTERED MENTAL STATUS DUE TO METABOLIC Physical Exam Vital Signs: Temp Pulse Resp BP Pulse Ox 100.2 F 110 H 16 121/69 93 09/28/18 12:16 09/28/18 12:00 09/28/18 12:16 09/28/18 12:16 09/28/18 12:16 Intake & Output 09/27/18 09/28/18 09/29/18 06:59 06:59 06:59 Intake Total 7809.0 4417 229 Output Total 1360 3160 445 Balance 6449.0 1257 -216 Weight 250 lb 3.594 oz 257 lb 15.053 oz Exam: Patient is intubated and sedated She is in A. fib and tachycardic Lungs appears clear bilaterally Patient is obese Abdomen is soft with normal sounds She moves all extremities Results Laboratory Results: 09/28/18 06:11 09/27/18 09/27/18 09/27/18 11:54 14:28 14:28 WBC RBC Hgb Hct MCV MCH MCHC RDW Plt Count Seg Neutrophils % Lymphocytes % Monocytes % Eosinophils % Basophils % Absolute Neutrophils Absolute Lymphocytes Absolute Monocytes Absolute Eosinophils Absolute Basophils Carbonic Acid HCO3/H2CO3 Ratio ABG pH ABG pCO2 ABG pO2 ABG HCO3 ABG O2 Saturation ABG Base Excess FiO2 Sodium Potassium Chloride Carbon Dioxide Anion Gap BUN Creatinine Est GFR ( Amer) Est GFR (Non-Af Amer) Glucose Calcium Magnesium Total Bilirubin AST ALT Alkaline Phosphatase Total Protein Albumin 2.5 L Fluid Tube Number 3 CSF Volume 9.0 CSF Appearance CLEAR CSF Color COLORLESS CSF WBC 24 H CSF RBC 0 CSF Glucose 125 H CSF Total Protein 78 H Stool Occult Blood 09/27/18 09/27/18 09/28/18 15:02 18:25 00:16 WBC RBC Hgb Hct MCV MCH MCHC RDW Plt Count Seg Neutrophils % Lymphocytes % Monocytes % Eosinophils % Basophils % Absolute Neutrophils Absolute Lymphocytes Absolute Monocytes Absolute Eosinophils Absolute Basophils Carbonic Acid HCO3/H2CO3 Ratio ABG pH ABG pCO2 ABG pO2 ABG HCO3 ABG O2 Saturation ABG Base Excess FiO2 Sodium 138.3 138.0 Potassium 4.7 4.8 Chloride 112 H 112 H Carbon Dioxide 16 L 15 L Anion Gap 10 11 BUN 25 H 26 H Creatinine 1.63 H 1.66 H Est GFR ( Amer) 37 L 36 L Est GFR (Non-Af Amer) 31 L 30 L Glucose 170 H 183 H Calcium 7.8 L 7.9 L Magnesium 1.9 Total Bilirubin AST ALT Alkaline Phosphatase Total Protein Albumin Fluid Tube Number CSF Volume CSF Appearance CSF Color CSF WBC CSF RBC CSF Glucose CSF Total Protein Stool Occult Blood NEGATIVE 09/28/18 09/28/18 09/28/18 05:30 06:11 06:11 WBC 11.0 H RBC 3.74 Hgb 10.3 L Hct 31.4 L MCV 84 MCH 27.5 MCHC 32.7 RDW 18.2 H Plt Count 178 Seg Neutrophils % 67.0 Lymphocytes % 16.7 Monocytes % 9.8 Eosinophils % 4.8 Basophils % 1.7 Absolute Neutrophils 7.4 Absolute Lymphocytes 1.8 Absolute Monocytes 1.1 Absolute Eosinophils 0.5 Absolute Basophils 0.2 Carbonic Acid 0.86 L HCO3/H2CO3 Ratio 18:1 ABG pH 7.36 ABG pCO2 28.5 L ABG pO2 72.9 L ABG HCO3 15.6 L ABG O2 Saturation 94.4 ABG Base Excess -8.6 FiO2 30% Sodium Cancelled Potassium Cancelled Chloride Cancelled Carbon Dioxide Cancelled Anion Gap Cancelled BUN Cancelled Creatinine Cancelled Est GFR ( Amer) Cancelled Est GFR (Non-Af Amer) Cancelled Glucose Cancelled Calcium Cancelled Magnesium Cancelled Total Bilirubin Cancelled AST Cancelled ALT Cancelled Alkaline Phosphatase Cancelled Total Protein Cancelled Albumin Cancelled Fluid Tube Number CSF Volume CSF Appearance CSF Color CSF WBC CSF RBC CSF Glucose CSF Total Protein Stool Occult Blood 09/28/18 09/28/18 06:11 07:04 WBC RBC Hgb Hct MCV MCH MCHC RDW Plt Count Seg Neutrophils % Lymphocytes % Monocytes % Eosinophils % Basophils % Absolute Neutrophils Absolute Lymphocytes Absolute Monocytes Absolute Eosinophils Absolute Basophils Carbonic Acid HCO3/H2CO3 Ratio ABG pH ABG pCO2 ABG pO2 ABG HCO3 ABG O2 Saturation ABG Base Excess FiO2 Sodium Cancelled 138.0 Potassium Cancelled 4.6 Chloride Cancelled 115 H Carbon Dioxide Cancelled 14 L Anion Gap Cancelled 9 BUN Cancelled 24 H Creatinine Cancelled 1.66 H Est GFR ( Amer) Cancelled 36 L Est GFR (Non-Af Amer) Cancelled 30 L Glucose Cancelled 152 H Calcium Cancelled 7.7 L Magnesium Cancelled 1.8 Total Bilirubin Cancelled 0.3 AST Cancelled 26 ALT Cancelled 21 Alkaline Phosphatase Cancelled 76 Total Protein Cancelled 4.8 L Albumin Cancelled 2.3 L Fluid Tube Number CSF Volume CSF Appearance CSF Color CSF WBC CSF RBC CSF Glucose CSF Total Protein Stool Occult Blood 09/25/18 17:20 Catheterized Urine Urine Culture - Final NO GROWTH 2 DAYS 09/25/18 09/25/18 09/25/18 17:42 19:00 19:00 Creatine Kinase 120 CK-MB (CK-2) 1.45 Troponin I 0.078 0.085 09/26/18 09/26/18 09/26/18 01:02 01:02 07:03 Creatine Kinase 240 H CK-MB (CK-2) 1.57 1.73 Troponin I 0.229 0.213 09/26/18 09/26/18 09/26/18 07:03 11:19 11:19 Creatine Kinase 422 H 405 H CK-MB (CK-2) 1.42 Troponin I 0.180 09/26/18 17:49 Creatine Kinase CK-MB (CK-2) Troponin I 0.125 Impressions: Abdomen/Pelvis CT 09/25/18 00:00 IMPRESSION: Limited study without IV or oral contrast. No evidence of bowel obstruction. Right lung base atelectasis/consolidation with trace pleural effusion. Head CT 09/25/18 14:07 IMPRESSION: 1. Significantly motion degraded exam. No acute intracranial findings of the evaluated structures. 2. Mild chronic microvascular ischemic disease. EVIDENCE OF ACUTE STROKE: NO. Guidance Fluoroscopy 09/27/18 00:00 IMPRESSION: Lumbar puncture under fluoroscopy. No immediate complication. CSF laboratory studies are pending Lumbar Puncture 09/27/18 00:00 IMPRESSION: Lumbar puncture under fluoroscopy. No immediate complication. CSF laboratory studies are pending Chest X-Ray 09/28/18 06:00 IMPRESSION: Cardiomegaly with interstitial edema and small bibasilar effusions. Endotracheal and enteric tubes are in place 2010 [employer]- All Rights Reserved Assessment & Plan - Diagnosis (1) AMS due to metabolic encephalopathy Is this a current diagnosis for this admission?: Yes Plan: When attempted to discontinue sedation today, she was agitated, hyperventilating and tachycardic and posturing and did not wake up We will get repeat CT scan of the head and EEG She is back on propofol drip Central line was done by Dr. Palma earlier today (2) ANGELITA (acute kidney injury) Is this a current diagnosis for this admission?: Yes Plan: Continue to monitor creatinine levels, electrolytes and kidney function, continue IV fluids (3) Atrial fibrillation with RVR Is this a current diagnosis for this admission?: Yes Plan: On Cardizem drip (4) DKA (diabetic ketoacidoses) Qualifiers: Diabetes mellitus type: type 2 Diabetes mellitus complication detail: with coma Qualified Code(s): E11.11 - Type 2 diabetes mellitus with ketoacidosis with coma Is this a current diagnosis for this admission?: Yes Plan: Now resolved Continue current insulin regimen Monitor glucose levels (5) Morbid obesity with BMI of 40.0-44.9, adult Is this a current diagnosis for this admission?: Yes (6) Non-STEMI (non-ST elevated myocardial infarction) Is this a current diagnosis for this admission?: Yes Plan: Echocardiogram shows preserved left ventricular function On Lovenox per cardiology (7) R infra hilar PNA Is this a current diagnosis for this admission?: Yes Plan: Continue vancomycin and cefepime (8) Suspected new onset seizure Is this a current diagnosis for this admission?: Yes Plan: She is on propofol, Keppra and Ativan We will get EEG and repeat CT scan of the head - Time Total Critical Time (Minutes): 35
[2018-09-28 13:18] LABS: ANION GAP 10 (5-19); BLOOD UREA NITROGEN 23 mg/dL (7-20); CALCIUM 7.6 mg/dL (8.4-10.2); CARBON DIOXIDE 14 mmol/L (22-30); CHLORIDE 115 mmol/L (98-107); GLUCOSE 162 mg/dL (75-110); POTASSIUM 4.2 mmol/L (3.6-5.0); SODIUM 139.2 mmol/L (137-145)
[2018-09-28] MEDS: METOPROLOL TARTRATE PF/INJ 5 MG/5 ML SDV IV PRN (13:49)
--- NOTE | 2018-09-28 16:36 | RADIOLOGY REPORT (SQ) ---
EXAM DESCRIPTION: CT HEAD WITHOUT COMPLETED DATE/TIME: 09/28/2018 4:18 pm REASON FOR STUDY: seizure COMPARISON: CT BRAIN 09/25/2018 TECHNIQUE: Axial images acquired through the brain without intravenous contrast. Images reviewed wi th bone, brain and subdural windows. Additional sagittal and coronal reconstructions were generated. Images stored on PACS. All CT scanners at this facility use dose modulation, iterative reconstruction, and/or weight based d osing when appropriate to reduce radiation dose to as low as reasonably achievable (ALARA). [facility]: Dose Right [facility]: CareDose [facility]: Dose Right [facility]: Teradose 4D [facility]: [employer] RADIATION DOSE: CT Rad equipment meets quality standard of care and radiation dose reduction techniq ues were employed. CTDIvol: 48.7 mGy. DLP: 979 mGy-cm. mGy. LIMITATIONS: None. FINDINGS: VENTRICLES: Normal size and contour. CEREBRUM: Multiple early subacute nonhemorrhagic infarcts are present throughout the right and left c erebral hemispheres involving watershed distribution along the bilateral posterior temporal/occipital , bilateral parietal, and bilateral frontal regions. Findings are worrisome for prolonged hypoperfus ion. There is cerebral edema and sulcal effacement right greater than left, with very subtle right t o left subfalcine shift. No acute superimposed hemorrhage. This result was discussed with Gretta, the patient's nurse in ICU. CEREBELLUM: No masses. No hemorrhage. No alteration of density. No evidence for acute infarction. EXTRAAXIAL SPACES: No fluid collections. No masses. ORBITS AND GLOBE: No intra- or extraconal masses. Globes post cataract surgery. CALVARIUM: No fracture. PARANASAL SINUSES: Mucous membrane thickening in the bilateral maxillary ethmoid and sphenoid sinuses SOFT TISSUES: No mass or hematoma. OTHER: No other significant finding. IMPRESSION: Multiple early subacute nonhemorrhagic infarcts throughout the right and left cerebral h emispheres suggesting hypoperfusion and watershed distribution. Sulcal effacement right greater than left with minimal right to left subfalcine shift. EVIDENCE OF ACUTE STROKE: NO. COMMENT: Quality ID # [id number]: Final reports with documentation of one or more dose reduction techniques (e.g., Automated exposure control, adjustment of the mA and/or kV according to patient size, use of iterative reconstruction technique) TECHNICAL DOCUMENTATION: JOB ID: [id number]- All Rights Reserved Reading location - IP/workstation name: [email or web address]
[2018-09-28] MEDS: DILTIAZEM HCL 60 MG TABLET PO SCH ×2 (17:13→18:43)
--- NOTE | 2018-09-28 17:48 | Progress Note ---
Provider Note Provider Note: CT scan of the brain is positive for very large stroke in both hemispheres. I called the and discussed with him over the phone. I expressed to him my opinion that the chance of meaningful recovery is very low and conveyed the very poor prognosis. At this time, we will continue current management and we will discuss with the tomorrow in person. We stopped heparin and Lovenox due to the risk of hemorrhagic conversion.
[2018-09-28 18:36] LABS: ANION GAP 11 (5-19); BLOOD UREA NITROGEN 23 mg/dL (7-20); CALCIUM 7.7 mg/dL (8.4-10.2); CARBON DIOXIDE 14 mmol/L (22-30); CHLORIDE 116 mmol/L (98-107); GLUCOSE 170 mg/dL (75-110); POTASSIUM 4.1 mmol/L (3.6-5.0); SODIUM 140.5 mmol/L (137-145)
[2018-09-28] MEDS: PANTOPRAZOLE SODIUM 40 MG VIAL IV SCH (22:31)
[2018-09-28] MEDS: INSULIN GLARGINE,HUM.REC.ANLOG 300 UNIT/3 ML INSULN.PEN SUBCUT SCH (22:32)
[2018-09-29] MEDS: PROPOFOL 1,000 MG/100 ML INFUS..BTL IV PRN ×3 (00:12→07:00)
[2018-09-29] MEDS: DILTIAZEM HCL 60 MG TABLET PO SCH ×3 (00:12→14:15)
[2018-09-29] MEDS: INSULIN LISPRO 100 UNIT/ML 3 ML VIAL SUBCUT PRN (00:27)
[2018-09-29] MEDS: NORMAL SALINE 1000 ML 1,000 ML IV PRN (03:40)
--- NOTE | 2018-09-29 06:26 | RADIOLOGY REPORT (SQ) ---
EXAM DESCRIPTION: XR CHEST 1 VIEW COMPLETED DATE/TME: 09/29/2018 06:00 CLINICAL HISTORY: 78 years, Female, resp failure COMPARISON: 09/28/2018 chest NUMBER OF VIEWS: 1 TECHNIQUE: Frontal view the chest LIMITATIONS: None. FINDINGS: Stable cardiomegaly. Grossly stable indwelling lines and catheters. Atheromatous change thoracic aorta. Slight worsening in the degree of interstitial edema with layering effusions bilaterally, greater on the right. No discrete pneumothorax. IMPRESSION: Slight worsening in the pulmonary edema pattern as above 2010 [employer]- All Rights Reserved
[2018-09-29 06:35] LABS: HEMATOCRIT 26.3 % (36.0-47.0); HEMOGLOBIN 8.6 g/dL (12.0-15.5); MEAN CORPUSCULAR HEMOGLOBIN 27.4 pg (27.0-33.4); MEAN CORPUSCULAR HGB CONC 32.6 g/dL (32.0-36.0); MEAN CORPUSCULAR VOLUME 84 fl (80-97); PLATELET COUNT 173 10^3/uL (150-450); RED BLOOD COUNT 3.13 10^6/uL (3.72-5.28); RED CELL DISTRIBUTION WIDTH 17.8 % (11.5-14.0); WHITE BLOOD COUNT 11.7 10^3/uL (4.0-10.5)
[2018-09-29 07:13] LABS: ARTERIAL BLOOD BASE EXCESS -10.4 mmol/L; ARTERIAL BLOOD FIO2 28%; ARTERIAL BLOOD H2CO3 0.79 mmol/L (1.05-1.35); ARTERIAL BLOOD O2 SATURATION 95.1 % (94-98); ARTERIAL BLOOD PCO2 26.1 mmHg (35-45); ARTERIAL BLOOD PH 7.35 (7.35-7.45); ARTERIAL BLOOD PO2 77.2 mmHg (80-100); ARTERIAL BLOOD TOTAL CO2 14.8 mmol/L (21-25)
[2018-09-29 07:15] LABS: ANION GAP 10 (5-19); BLOOD UREA NITROGEN 23 mg/dL (7-20); CALCIUM 7.9 mg/dL (8.4-10.2); CARBON DIOXIDE 15 mmol/L (22-30); CHLORIDE 118 mmol/L (98-107); GLUCOSE 115 mg/dL (75-110); POTASSIUM 3.8 mmol/L (3.6-5.0); SODIUM 142.8 mmol/L (137-145)
[2018-09-29] MEDS: LEVETIRACETAM 500 MG/NACL-ISO 500 MG/100 ML RTUPB IV SCH (09:52)
[2018-09-29] MEDS: PANTOPRAZOLE SODIUM 40 MG VIAL IV SCH (09:52)
[2018-09-29] MEDS: CEFEPIME 2 GM/D5W RTU 2 GM/50 ML RTUPB IV SCH (09:52)
[2018-09-29] MEDS: FENTANYL CITRATE INJ/PF 100 MCG/2 ML AMPUL IV PRN (10:07)
[2018-09-29] MEDS: LORAZEPAM INJ 2 MG/1 ML VIAL IV PRN ×3 (12:18→21:17)
[2018-09-29] MEDS: MORPHINE SULFATE 10 MG/ML INJ IV PRN ×2 (13:21→16:09)
[2018-09-29] MEDS: VANCOMYCIN HCL 1,250 MG in DEXTROSE 5%-WATER 250 ML IV SCH (14:15)
--- NOTE | 2018-09-29 15:36 | PDOC PROGRESS REPORT ---
Subjective Progress Note for:: 09/29/18 Subjective:: Patient is terminally extubated today Reason For Visit: ALTERED MENTAL STATUS DUE TO METABOLIC Physical Exam Vital Signs: Temp Pulse Resp BP Pulse Ox 98.6 F 114 H 20 163/135 H 96 09/29/18 14:01 09/29/18 14:00 09/29/18 14:01 09/29/18 14:00 09/29/18 14:01 Intake & Output 09/28/18 09/29/18 09/30/18 06:59 06:59 06:59 Intake Total 4417 4057 91 Output Total 3160 1970 975 Balance 1257 2827 -884 Weight 257 lb 15.053 oz 261 lb 11.019 oz General appearance: PRESENT: obese Head exam: PRESENT: atraumatic, normocephalic Neck exam: ABSENT: tracheostomy Respiratory exam: PRESENT: accessory muscle use Results Laboratory Results: 09/29/18 05:55 09/29/18 05:55 09/28/18 09/29/18 09/29/18 18:02 05:55 05:55 WBC 11.7 H RBC 3.13 L Hgb 8.6 L Hct 26.3 L MCV 84 MCH 27.4 MCHC 32.6 RDW 17.8 H Plt Count 173 Carbonic Acid HCO3/H2CO3 Ratio ABG pH ABG pCO2 ABG pO2 ABG HCO3 ABG O2 Saturation ABG Base Excess FiO2 Sodium 140.5 142.8 Potassium 4.1 3.8 Chloride 116 H 118 H Carbon Dioxide 14 L 15 L Anion Gap 11 10 BUN 23 H 23 H Creatinine 1.59 H 1.55 H Est GFR ( Amer) 38 L 39 L Est GFR (Non-Af Amer) 31 L 32 L Glucose 170 H 115 H Calcium 7.7 L 7.9 L Magnesium 1.7 09/29/18 05:55 WBC RBC Hgb Hct MCV MCH MCHC RDW Plt Count Carbonic Acid 0.79 L HCO3/H2CO3 Ratio 17:1 ABG pH 7.35 ABG pCO2 26.1 L ABG pO2 77.2 L ABG HCO3 14.0 L ABG O2 Saturation 95.1 ABG Base Excess -10.4 FiO2 28% Sodium Potassium Chloride Carbon Dioxide Anion Gap BUN Creatinine Est GFR ( Amer) Est GFR (Non-Af Amer) Glucose Calcium Magnesium 1109/25/18 09/25/18 17:42 19:00 19:00 Creatine Kinase 120 CK-MB (CK-2) 1.45 Troponin I 0.078 0.085 09/26/18 09/26/18 09/26/18 01:02 01:02 07:03 Creatine Kinase 240 H CK-MB (CK-2) 1.57 1.73 Troponin I 0.229 0.213 09/26/18 09/26/18 09/26/18 07:03 11:19 11:19 Creatine Kinase 422 H 405 H CK-MB (CK-2) 1.42 Troponin I 0.180 09/26/18 17:49 Creatine Kinase CK-MB (CK-2) Troponin I 0.125 Impressions: Abdomen/Pelvis CT 09/25/18 00:00 IMPRESSION: Limited study without IV or oral contrast. No evidence of bowel obstruction. Right lung base atelectasis/consolidation with trace pleural effusion. Guidance Fluoroscopy 09/27/18 00:00 IMPRESSION: Lumbar puncture under fluoroscopy. No immediate complication. CSF laboratory studies are pending Lumbar Puncture 09/27/18 00:00 IMPRESSION: Lumbar puncture under fluoroscopy. No immediate complication. CSF laboratory studies are pending Head CT 09/28/18 00:00 IMPRESSION: Multiple early subacute nonhemorrhagic infarcts throughout the right and left cerebral hemispheres suggesting hypoperfusion and watershed distribution. Sulcal effacement right greater than left with minimal right to left subfalcine shift. EVIDENCE OF ACUTE STROKE: NO. Chest X-Ray 09/29/18 06:00 IMPRESSION: Slight worsening in the pulmonary edema pattern as above 2010 [employer]- All Rights Reserved Assessment & Plan - Diagnosis (1) Stroke Qualifiers: Laterality of affected vessel: bilateral Is this a current diagnosis for this admission?: Yes Plan: Very large bilateral ischemic stroke Patient is terminally extubated and on comfort care only Hospice consulted (2) ANGELITA (acute kidney injury) Is this a current diagnosis for this admission?: Yes (3) Atrial fibrillation with RVR Is this a current diagnosis for this admission?: Yes (4) DKA (diabetic ketoacidoses) Qualifiers: Diabetes mellitus type: type 2 Diabetes mellitus complication detail: with coma Qualified Code(s): E11.11 - Type 2 diabetes mellitus with ketoacidosis with coma Is this a current diagnosis for this admission?: Yes Plan: resolved (5) Morbid obesity with BMI of 40.0-44.9, adult Is this a current diagnosis for this admission?: Yes (6) Non-STEMI (non-ST elevated myocardial infarction) Is this a current diagnosis for this admission?: Yes Plan: Echocardiogram shows preserved left ventricular function (7) R infra hilar PNA Is this a current diagnosis for this admission?: Yes
--- NOTE | 2018-09-29 20:21 | PDOC PROGRESS REPORT ---
Subjective Progress Note for:: 09/29/18 Subjective:: Patient about the same and has made very little progress. There is no significant change in general condition. Patient noted to be responsive to pain but she is under sedation. Patient has been noted to have large cerebrovascular accident. Patient remains intubated, sedated, patient however looks comfortable and in acute distress. Medications reviewed. Reason For Visit: ALTERED MENTAL STATUS DUE TO METABOLIC Physical Exam Vital Signs: Temp Pulse Resp BP Pulse Ox 98.4 F 102 H 12 149/106 H 100 09/29/18 18:00 09/29/18 18:00 09/29/18 18:00 09/29/18 18:00 09/29/18 18:00 Intake & Output 09/28/18 09/29/18 09/30/18 06:59 06:59 06:59 Intake Total 4417 4057 91 Output Total 3160 1970 1325 Balance 1257 4337 -1233 Weight 117 kg 118.7 kg Results Laboratory Results: 09/29/18 05:55 09/29/18 05:55 09/29/18 09/29/18 09/29/18 05:55 05:55 05:55 WBC 11.7 H RBC 3.13 L Hgb 8.6 L Hct 26.3 L MCV 84 MCH 27.4 MCHC 32.6 RDW 17.8 H Plt Count 173 Carbonic Acid 0.79 L HCO3/H2CO3 Ratio 17:1 ABG pH 7.35 ABG pCO2 26.1 L ABG pO2 77.2 L ABG HCO3 14.0 L ABG O2 Saturation 95.1 ABG Base Excess -10.4 FiO2 28% Sodium 142.8 Potassium 3.8 Chloride 118 H Carbon Dioxide 15 L Anion Gap 10 BUN 23 H Creatinine 1.55 H Est GFR ( Amer) 39 L Est GFR (Non-Af Amer) 32 L Glucose 115 H Calcium 7.9 L Magnesium 1.7 09/25/18 20:18 Tracheal Aspirate Gram Stain - Final 09/25/18 20:18 Tracheal Aspirate Sputum Culture - Final NORMAL MARILYN 09/27/18 10:23 Tracheal Aspirate Gram Stain - Final 09/27/18 10:23 Tracheal Aspirate Sputum Culture - Final C.albicans/C.dubliniensis Normal Marilyn Absent 09/25/18 09/25/18 09/25/18 17:42 19:00 19:00 Creatine Kinase 120 CK-MB (CK-2) 1.45 Troponin I 0.078 0.085 09/26/18 09/26/18 09/26/18 01:02 01:02 07:03 Creatine Kinase 240 H CK-MB (CK-2) 1.57 1.73 Troponin I 0.229 0.213 09/26/18 09/26/18 09/26/18 07:03 11:19 11:19 Creatine Kinase 422 H 405 H CK-MB (CK-2) 1.42 Troponin I 0.180 09/26/18 17:49 Creatine Kinase CK-MB (CK-2) Troponin I 0.125 Impressions: Abdomen/Pelvis CT 09/25/18 00:00 IMPRESSION: Limited study without IV or oral contrast. No evidence of bowel obstruction. Right lung base atelectasis/consolidation with trace pleural effusion. Guidance Fluoroscopy 09/27/18 00:00 IMPRESSION: Lumbar puncture under fluoroscopy. No immediate complication. CSF laboratory studies are pending Lumbar Puncture 09/27/18 00:00 IMPRESSION: Lumbar puncture under fluoroscopy. No immediate complication. CSF laboratory studies are pending Head CT 09/28/18 00:00 IMPRESSION: Multiple early subacute nonhemorrhagic infarcts throughout the right and left cerebral hemispheres suggesting hypoperfusion and watershed distribution. Sulcal effacement right greater than left with minimal right to left subfalcine shift. EVIDENCE OF ACUTE STROKE: NO. Chest X-Ray 09/29/18 06:00 IMPRESSION: Slight worsening in the pulmonary edema pattern as above 2010 [employer]- All Rights Reserved Assessment & Plan - Diagnosis (1) Atrial fibrillation with RVR Is this a current diagnosis for this admission?: Yes (2) Hyperlipidemia Qualifiers: Hyperlipidemia type: unspecified Qualified Code(s): E78.5 - Hyperlipidemia , unspecified Is this a current diagnosis for this admission?: Yes (3) Hypertension Qualifiers: Hypertension type: essential hypertension Qualified Code(s): I10 - Essential (primary) hypertension Is this a current diagnosis for this admission?: Yes (4) Suspected new onset seizure Is this a current diagnosis for this admission?: Yes (5) Diabetic hyperosmolar coma Is this a current diagnosis for this admission?: Yes (6) Lactic acidosis Is this a current diagnosis for this admission?: Yes (7) Non-STEMI (non-ST elevated myocardial infarction) Is this a current diagnosis for this admission?: Yes (8) Elevated troponin I level Is this a current diagnosis for this admission?: Yes - Notes Notes: Patient maintaining atrial fibrillation heart rate has been variable. Patient was noted to be bradycardic. Have asked nurse to reduce Cardizem to 30 mg p.o. every 6. Hospitalist to discuss CODE STATUS and other care with the patient's family. - Time Time with patient: 15-25 minutes Medications reviewed and adjusted accordingly: Yes
[2018-09-30] MEDS: LORAZEPAM INJ 2 MG/1 ML VIAL IV PRN ×6 (00:31→16:00)
[2018-09-30] MEDS: MORPHINE SULFATE 10 MG/ML INJ IV PRN ×4 (08:47→15:59)
--- NOTE | 2018-09-30 13:53 | PDOC TRANSFER SUMMARY ---
General - Admit/Disc Date/PCP Admission Date/Primary Care Provider: 09/25/18 17:19 MARIAH MONROE MD Discharge Date: 09/30/18 - Discharge Diagnosis (1) Stroke Is this a current diagnosis for this admission?: Yes (2) ANGELITA (acute kidney injury) Is this a current diagnosis for this admission?: Yes (3) Atrial fibrillation with RVR Is this a current diagnosis for this admission?: Yes (4) DKA (diabetic ketoacidoses) Is this a current diagnosis for this admission?: Yes (5) Morbid obesity with BMI of 40.0-44.9, adult Is this a current diagnosis for this admission?: Yes (6) Non-STEMI (non-ST elevated myocardial infarction) Is this a current diagnosis for this admission?: Yes (7) R infra hilar PNA Is this a current diagnosis for this admission?: Yes - Additional Information Resuscitation Status: Do Not Resuscitate Discharge Diet: As Tolerated Discharge Activity: Bedrest Home Medications: Lorazepam [Ativan Inj 2 mg/1 ml Vial] 1 mg IV Q2HP PRN vial 09/30/18 Morphine Sulfate [Morphine 10 mg/ml Inj] 2 mg IV Q2HP PRN vial 09/30/18 History of Present Illness Admission Date/PCP: 09/25/18 17:19 MARIAH MONROE MD History of Present Illness: SUSIE CARTER is a 78 year old female patient with past medical history of morbid obesity, hypertension, hyperlipidemia and diabetes mellitus brought by EMS for altered mental status. Since patient is obtunded or somehow postictal she is not able to give history. Brief history is obtained from the ER attending note and from her per her patient seemed to have a brief seizure-like activity this afternoon and he describes seizure activity as tonic-clonic and her eyes had rolled back. In route to hospital patient was given Ativan by EMS. Patient also noticed to have atrial fibrillation with rapid ventricular response. Her states that patient does not have history of cardiac arrhythmia and also I checked her medication list she is not on any rate control or anticoagulant medication. Her initial workup shows hyperglycemia with blood glucose of 643 mild leukocytosis WBC of 12.2 lactic acid 2.5 creatinine of 1.88 and her chest x-ray reported as right infrahilar pneumonia. Further detailed history and review of systems unobtainable Hospital Course Hospital Course: Patient was initially admitted for DKA and altered mental status. She was treated with DKA protocol and this has resolved. Patient continued to be encephalopathic and was intubated to protect her airways after an episode of vomiting. She was also treated for right infrahilar pneumonia with vancomycin and cefepime. She also developed rapid atrial fibrillationtreated with Cardizem drip. Patient did not respond after cessation of sedation and CT scan was positive for bilateral very large brain infarcts. The family opted for palliative care and comfort measures. Patient was extubated September 29, 2018. She was accepted to hospice house and will be discharged today. Comatose and unconscious but able to maintain her own breathing with nasal cannula oxygen. Physical Exam Vital Signs: Temp Pulse Resp BP Pulse Ox 98.2 F 108 H 12 132/90 H 96 09/30/18 10:30 09/30/18 08:33 09/30/18 10:30 09/30/18 10:02 09/30/18 10:30 Intake & Output 09/29/18 09/30/18 10/01/18 06:59 06:59 06:59 Intake Total 4057 91 Output Total 1970 1975 325 Balance 2087 -4 -325 Weight 261 lb 11.019 oz General appearance: PRESENT: obese Neck exam: PRESENT: meningismus Cardiovascular exam: PRESENT: irregular rhythm Neurological exam: PRESENT: other - comatose Results Laboratory Results: 09/29/18 05:55 09/29/18 05:55 09/25/18 20:18 Tracheal Aspirate Gram Stain - Final 09/25/18 20:18 Tracheal Aspirate Sputum Culture - Final NORMAL RAHEEM 09/27/18 10:23 Tracheal Aspirate Gram Stain - Final 09/27/18 10:23 Tracheal Aspirate Sputum Culture - Final C.albicans/C.dubliniensis Normal Raheem Absent 09/25/18 09/25/18 09/25/18 17:42 19:00 19:00 Creatine Kinase 120 CK-MB (CK-2) 1.45 Troponin I 0.078 0.085 09/26/18 09/26/18 09/26/18 01:02 01:02 07:03 Creatine Kinase 240 H CK-MB (CK-2) 1.57 1.73 Troponin I 0.229 0.213 09/26/18 09/26/18 09/26/18 07:03 11:19 11:19 Creatine Kinase 422 H 405 H CK-MB (CK-2) 1.42 Troponin I 0.180 09/26/18 17:49 Creatine Kinase CK-MB (CK-2) Troponin I 0.125 Impressions: Abdomen/Pelvis CT 09/25/18 00:00 IMPRESSION: Limited study without IV or oral contrast. No evidence of bowel obstruction. Right lung base atelectasis/consolidation with trace pleural effusion. Guidance Fluoroscopy 09/27/18 00:00 IMPRESSION: Lumbar puncture under fluoroscopy. No immediate complication. CSF laboratory studies are pending Lumbar Puncture 09/27/18 00:00 IMPRESSION: Lumbar puncture under fluoroscopy. No immediate complication. CSF laboratory studies are pending Head CT 09/28/18 00:00 IMPRESSION: Multiple early subacute nonhemorrhagic infarcts throughout the right and left cerebral hemispheres suggesting hypoperfusion and watershed distribution. Sulcal effacement right greater than left with minimal right to left subfalcine shift. EVIDENCE OF ACUTE STROKE: NO. Chest X-Ray 09/29/18 06:00 IMPRESSION: Slight worsening in the pulmonary edema pattern as above 2010 [employer] [facility] [employer]- All Rights Reserved Qualifiers - * PATIENT BEING DISCHARGED WITH ANY OF THE FOLLOWING DIAGNOSIS: No
[2018-09-30 16:33] VITALS: BP 136/89
--- NOTE | 2018-10-01 13:40 | EEG PRO FEE REPORT ---
EEG INTERPRETATION PATIENT NAME: SUSIE CARTER ROOM#: [id number] ORDER#: [id number] DATE OF STUDY: 09/28/2018 : 1940 REFERRING MD: MAMIE HART M.D. MEDICATIONS: Aspirin, Cogentin, Haldol, Cardene, nitroglycerin/dextrose. REPORT HISTORY: This is a 78-year-old woman admitted with a diabetic ketoacidosis and atrial fibrillation, on Lexapro, but taken off sedation for EEG (unknown timing). This EEG was requested for possible seizures. EEG INTERPRETATION: This EEG was recorded in the sleep state only with the patient intubated. The EEG was disorganized with suppression, a mix of mostly delta with some theta and beta. There were generalized periodic discharges (GPDs) maximal bifrontally. There was no apparent reactivity to passive eye opening/closing. Photic stimulation resulted in no significant changes. Other activation measures were not noted to be done. There were no epileptiform abnormalities. Abnormal movements were not noted. There was intermittent artifact in multiple channels with fairly continuous artifact in the O2 channels. The EKG showed an irregularly irregular rhythm. EEG CLASSIFICATION: 1. Generalized periodic discharges. 2. Disorganization. 3. EKG irregular rhythm. EEG IMPRESSION: This EEG is severely abnormal. GPDs suggest severe diffuse cerebral dysfunction (e.g. metabolic or hypoxic/ischemic encephalopathies). Treatment with antiepileptic medications is of unclear benefit. The EKG showed an irregular pattern consistent with the patient's history of atrial fibrillation. INTERPRETING PHYSICIAN: JERI CORONEL M.D. /: [id number] TT: 1308 ID: [id number] /: [id number] TD: [id number] JOB: [id number] cc:Nancy VILLAR M.D. ALBERT CURSEEN, M.D. HASSAN ELHEWAN, M.D. > MTDD
--- NOTE | 2018-10-01 23:14 | PDOC PROGRESS REPORT ---
Subjective Progress Note for:: 09/28/18 Subjective:: Patient about the same and has made very little progress. There is no significant change in general condition. Patient noted to be responsive to pain but she is under sedation. Patient remains intubated, sedated, patient however looks comfortable and in acute distress. Medications reviewed. Reason For Visit: ALTERED MENTAL STATUS DUE TO METABOLIC Physical Exam Vital Signs: Temp Pulse Resp BP Pulse Ox 100.0 F 97 18 134/74 H 100 09/28/18 18:00 09/28/18 18:00 09/28/18 18:00 09/28/18 18:00 09/28/18 18:00 Intake & Output 09/27/18 09/28/18 09/29/18 06:59 06:59 06:59 Intake Total 7809.0 4417 2329 Output Total 1360 3160 895 Balance 6449.0 1257 1434 Weight 113.5 kg 117 kg Exam: GENERAL: well-nourished and in no acute distress. Patient is intubated and sedated. Orientation cannot be checked HEAD: Atraumatic, normocephalic. EYES: Pupils equal round and reactive to light, extraocular movements could not be checked, sclera anicteric, conjunctiva are normal. ENT: TMs normal, nares patent, oropharynx clear without exudates. Moist mucous membranes. No oral ulcerations or bleeding gums noted NECK: supple without lymphadenopathy or JVD. Trachea is central. No cervical or axillary lymphadenopathy noted. Carotids are 2+ LUNGS: Breath sounds mostly clear to auscultation patient is noted to have bibasal crackles at the extreme bases CHEST: Palpation of the chest wall shows no significant chest wall tenderness or abnormalities. HEART: [place] [employer], No PSH, 2/6 TRACY aortic area, 1/6 monte systolic murmur mitral area , no rubs or gallops. ABDOMEN: Soft, no significant tenderness appreciated, normoactive bowel sounds. No guarding, no rebound. No rigidity noted . No masses appreciated. EXTREMITIES: Pedal pulses are 1-2+, no calf tenderness noted, 1+ pedal edema noted. No clubbing or cyanosis. NEUROLOGICAL: The patient cannot participate in the neurological exam but no facial asymmetry noted. Extremities slightly hypotonic PSYCH: This cannot be evaluated. Patient cannot participate. SKIN: No significant ecchymosis, rash, or signs of pruritus noted. MUSCULOSKELETAL EXAM: No significant joint swelling noted. Patient cannot participate in musculoskeletal exam Results Laboratory Results: 09/28/18 06:11 09/28/18 18:02 09/28/18 09/28/18 09/28/18 00:16 05:30 06:11 WBC 11.0 H RBC 3.74 Hgb 10.3 L Hct 31.4 L MCV 84 MCH 27.5 MCHC 32.7 RDW 18.2 H Plt Count 178 Seg Neutrophils % 67.0 Lymphocytes % 16.7 Monocytes % 9.8 Eosinophils % 4.8 Basophils % 1.7 Absolute Neutrophils 7.4 Absolute Lymphocytes 1.8 Absolute Monocytes 1.1 Absolute Eosinophils 0.5 Absolute Basophils 0.2 Carbonic Acid 0.86 L HCO3/H2CO3 Ratio 18:1 ABG pH 7.36 ABG pCO2 28.5 L ABG pO2 72.9 L ABG HCO3 15.6 L ABG O2 Saturation 94.4 ABG Base Excess -8.6 FiO2 30% Sodium 138.0 Potassium 4.8 Chloride 112 H Carbon Dioxide 15 L Anion Gap 11 BUN 26 H Creatinine 1.66 H Est GFR ( Amer) 36 L Est GFR (Non-Af Amer) 30 L Glucose 183 H Calcium 7.9 L Magnesium Total Bilirubin AST ALT Alkaline Phosphatase Total Protein Albumin 09/28/18 09/28/18 09/28/18 06:11 06:11 07:04 WBC RBC Hgb Hct MCV MCH MCHC RDW Plt Count Seg Neutrophils % Lymphocytes % Monocytes % Eosinophils % Basophils % Absolute Neutrophils Absolute Lymphocytes Absolute Monocytes Absolute Eosinophils Absolute Basophils Carbonic Acid HCO3/H2CO3 Ratio ABG pH ABG pCO2 ABG pO2 ABG HCO3 ABG O2 Saturation ABG Base Excess FiO2 Sodium Cancelled Cancelled 138.0 Potassium Cancelled Cancelled 4.6 Chloride Cancelled Cancelled 115 H Carbon Dioxide Cancelled Cancelled 14 L Anion Gap Cancelled Cancelled 9 BUN Cancelled Cancelled 24 H Creatinine Cancelled Cancelled 1.66 H Est GFR ( Amer) Cancelled Cancelled 36 L Est GFR (Non-Af Amer) Cancelled Cancelled 30 L Glucose Cancelled Cancelled 152 H Calcium Cancelled Cancelled 7.7 L Magnesium Cancelled Cancelled 1.8 Total Bilirubin Cancelled Cancelled 0.3 AST Cancelled Cancelled 26 ALT Cancelled Cancelled 21 Alkaline Phosphatase Cancelled Cancelled 76 Total Protein Cancelled Cancelled 4.8 L Albumin Cancelled Cancelled 2.3 L 09/28/18 09/28/18 12:28 18:02 WBC RBC Hgb Hct MCV MCH MCHC RDW Plt Count Seg Neutrophils % Lymphocytes % Monocytes % Eosinophils % Basophils % Absolute Neutrophils Absolute Lymphocytes Absolute Monocytes Absolute Eosinophils Absolute Basophils Carbonic Acid HCO3/H2CO3 Ratio ABG pH ABG pCO2 ABG pO2 ABG HCO3 ABG O2 Saturation ABG Base Excess FiO2 Sodium 139.2 140.5 Potassium 4.2 4.1 Chloride 115 H 116 H Carbon Dioxide 14 L 14 L Anion Gap 10 11 BUN 23 H 23 H Creatinine 1.62 H 1.59 H Est GFR ( Amer) 37 L 38 L Est GFR (Non-Af Amer) 31 L 31 L Glucose 162 H 170 H Calcium 7.6 L 7.7 L Magnesium Total Bilirubin AST ALT Alkaline Phosphatase Total Protein Albumin 09/25/18 09/25/18 09/25/18 17:42 19:00 19:00 Creatine Kinase 120 CK-MB (CK-2) 1.45 Troponin I 0.078 0.085 09/26/18 09/26/18 09/26/18 01:02 01:02 07:03 Creatine Kinase 240 H CK-MB (CK-2) 1.57 1.73 Troponin I 0.229 0.213 09/26/18 09/26/18 09/26/18 07:03 11:19 11:19 Creatine Kinase 422 H 405 H CK-MB (CK-2) 1.42 Troponin I 0.180 09/26/18 17:49 Creatine Kinase CK-MB (CK-2) Troponin I 0.125 EKG Comments: Telemetry shows atrial fibrillation with some fluctuating heart rates but with blood pressure being stable. Impressions: Abdomen/Pelvis CT 09/25/18 00:00 IMPRESSION: Limited study without IV or oral contrast. No evidence of bowel obstruction. Right lung base atelectasis/consolidation with trace pleural effusion. Guidance Fluoroscopy 09/27/18 00:00 IMPRESSION: Lumbar puncture under fluoroscopy. No immediate complication. CSF laboratory studies are pending Lumbar Puncture 09/27/18 00:00 IMPRESSION: Lumbar puncture under fluoroscopy. No immediate complication. CSF laboratory studies are pending Head CT 09/28/18 00:00 IMPRESSION: Multiple early subacute nonhemorrhagic infarcts throughout the right and left cerebral hemispheres suggesting hypoperfusion and watershed distribution. Sulcal effacement right greater than left with minimal right to left subfalcine shift. EVIDENCE OF ACUTE STROKE: NO. Chest X-Ray 09/28/18 06:00 IMPRESSION: Cardiomegaly with interstitial edema and small bibasilar effusions. Endotracheal and enteric tubes are in place 2010 [employer]- All Rights Reserved Assessment & Plan - Diagnosis (1) Atrial fibrillation with RVR Is this a current diagnosis for this admission?: Yes (2) Hyperlipidemia Qualifiers: Hyperlipidemia type: unspecified Qualified Code(s): E78.5 - Hyperlipidemia , unspecified Is this a current diagnosis for this admission?: Yes (3) Hypertension Qualifiers: Hypertension type: essential hypertension Qualified Code(s): I10 - Essential (primary) hypertension Is this a current diagnosis for this admission?: Yes (4) Suspected new onset seizure Is this a current diagnosis for this admission?: Yes (5) Diabetic hyperosmolar coma Is this a current diagnosis for this admission?: Yes (6) Lactic acidosis Is this a current diagnosis for this admission?: Yes (7) Non-STEMI (non-ST elevated myocardial infarction) Is this a current diagnosis for this admission?: Yes (8) Elevated troponin I level Is this a current diagnosis for this admission?: Yes - Notes Notes: Intermittent tachycardia with rapid ventricular response from atrial fibrillation noted. This was noted during weaning trial. Recommend Cardizem 60 mg p.o. every 6 via NG tube. Atrial fibrillation with RVR: Continue with rate control. May consider chronic anticoagulation if there are no contraindication there has been drop in hemoglobin. May need to rule out ongoing bleeding disorder before starting patient on Eliquis or other oral anticoagulant. Non-STEMI type II and elevated troponin I: Most likely related to metabolic reasons including hyperosmolar coma, atrial fibrillation with rapid ventricular response, sepsis, acidosis etc. Further evaluation with a nuclear stress test will be considered when patient is more stable and extubated. 2D echo shows well-preserved LVEF. RV seems mildly enlarged. Diabetic hyperosmolar coma: Currently being expertly managed by hospitalist. Lactic acidosis: Possibly underlying sepsis which can precipitate hyperosmolar coma. However this is currently coming down and seems resolved. New onset seizures: Could be related to new stroke or could be related to hyperosmolar coma. Further evaluation will be needed. This may include an EEG , brain MRI CTA etc. Hypertension: Blood pressure goal should be liberal. Hyperlipidemia: Recommend high potency statin therapy. - Time Time with patient: Greater than 35 minutes - CODE STATUS : was discussed, patient remains DO NOT RESUSCITATE. Surrogate decision-maker unchanged. Multiple medical problems were addressed. More than 50% of the time spent coordinating care, discussing management plans with involved caregivers. Management plans discussed with involved personnels. Medical decision making was of moderate to high complexity, patient's has multiple comorbidities. Medications reviewed and adjusted accordingly: Yes
--- NOTE | 2018-10-01 23:15 | PDOC PROGRESS REPORT ---
Subjective Progress Note for:: 09/30/18 Subjective:: Patient has been made a DNR and currently comfort care and is to be discharged to hospice. Patient about the same and has made very little progress. There is no significant change in general condition. Patient noted to be responsive to pain but she is under sedation. Patient has been noted to have large cerebrovascular accident. Patient remains intubated, sedated, patient however looks comfortable and in acute distress. Medications reviewed. Reason For Visit: ALTERED MENTAL STATUS DUE TO METABOLIC Physical Exam Vital Signs: Temp Pulse Resp BP Pulse Ox 98.1 F 108 H 11 L 136/89 H 100 09/30/18 16:31 09/30/18 16:31 09/30/18 16:31 09/30/18 16:31 09/30/18 16:31 Intake & Output 09/29/18 09/30/18 10/01/18 06:59 06:59 06:59 Intake Total 4057 91 Output Total 1970 1975 525 Balance 6391 -7732 -740 Weight 118.7 kg Results Laboratory Results: 09/29/18 05:55 09/29/18 05:55 09/25/18 17:42 Blood Blood Culture - Final NO GROWTH IN 5 DAYS 09/25/18 20:18 Tracheal Aspirate Gram Stain - Final 09/25/18 20:18 Tracheal Aspirate Sputum Culture - Final NORMAL MARILYN 09/27/18 10:23 Tracheal Aspirate Gram Stain - Final 09/27/18 10:23 Tracheal Aspirate Sputum Culture - Final C.albicans/C.dubliniensis Normal Marilyn Absent 09/25/18 09/25/18 09/25/18 17:42 19:00 19:00 Creatine Kinase 120 CK-MB (CK-2) 1.45 Troponin I 0.078 0.085 09/26/18 09/26/18 09/26/18 01:02 01:02 07:03 Creatine Kinase 240 H CK-MB (CK-2) 1.57 1.73 Troponin I 0.229 0.213 09/26/18 09/26/18 09/26/18 07:03 11:19 11:19 Creatine Kinase 422 H 405 H CK-MB (CK-2) 1.42 Troponin I 0.180 09/26/18 17:49 Creatine Kinase CK-MB (CK-2) Troponin I 0.125 Impressions: Abdomen/Pelvis CT 09/25/18 00:00 IMPRESSION: Limited study without IV or oral contrast. No evidence of bowel obstruction. Right lung base atelectasis/consolidation with trace pleural effusion. Guidance Fluoroscopy 09/27/18 00:00 IMPRESSION: Lumbar puncture under fluoroscopy. No immediate complication. CSF laboratory studies are pending Lumbar Puncture 09/27/18 00:00 IMPRESSION: Lumbar puncture under fluoroscopy. No immediate complication. CSF laboratory studies are pending Head CT 09/28/18 00:00 IMPRESSION: Multiple early subacute nonhemorrhagic infarcts throughout the right and left cerebral hemispheres suggesting hypoperfusion and watershed distribution. Sulcal effacement right greater than left with minimal right to left subfalcine shift. EVIDENCE OF ACUTE STROKE: NO. Chest X-Ray 09/29/18 06:00 IMPRESSION: Slight worsening in the pulmonary edema pattern as above 2010 [employer]- All Rights Reserved Assessment & Plan - Diagnosis (1) Atrial fibrillation with RVR Is this a current diagnosis for this admission?: Yes (2) Hyperlipidemia Qualifiers: Hyperlipidemia type: unspecified Qualified Code(s): E78.5 - Hyperlipidemia , unspecified Is this a current diagnosis for this admission?: Yes (3) Hypertension Qualifiers: Hypertension type: essential hypertension Qualified Code(s): I10 - Essential (primary) hypertension Is this a current diagnosis for this admission?: Yes (4) Suspected new onset seizure Is this a current diagnosis for this admission?: Yes (5) Diabetic hyperosmolar coma Is this a current diagnosis for this admission?: Yes (6) Lactic acidosis Is this a current diagnosis for this admission?: Yes (7) Non-STEMI (non-ST elevated myocardial infarction) Is this a current diagnosis for this admission?: Yes (8) Elevated troponin I level Is this a current diagnosis for this admission?: Yes - Notes Notes: Patient has now been made comfort care and is currently in hospice service. No active management is being planned. We will therefore sign off.
== END 2018-09-30 16:30 | disposition hospice, inpatient (51) | DRG 637 ==
LOC: ER 13:48 → EH 17:19 → ICU 18:38
PROVIDERS: ADMIT Internal Medicine; ATTEND Internal Medicine
PROC: 0BH17EZ Insertion of Endotracheal Airway into Trachea, Via Natural or Artificial Opening (ICD-10-PCS; principal; 2018-09-25)
PROC: 5A1945Z Respiratory Ventilation, 24-96 Consecutive Hours (ICD-10-PCS; 2018-09-25)
PROC: 009U3ZX Drainage of Spinal Canal, Percutaneous Approach, Diagnostic (ICD-10-PCS; 2018-09-27)
PROC: B01BZZZ Fluoroscopy of Spinal Cord (ICD-10-PCS; 2018-09-27)
PROC: 02HV33Z Insertion of Infusion Device into Superior Vena Cava, Percutaneous Approach (ICD-10-PCS; 2018-09-28)
PROC: 0BP1XDZ Removal of Intraluminal Device from Trachea, External Approach (ICD-10-PCS; 2018-09-29)
DX: E11.11 Type 2 diabetes mellitus with ketoacidosis with coma (principal); J18.9 Pneumonia, unspecified organism; I21.A1 Myocardial infarction type 2; I63.89 Other cerebral infarction; A41.9 Sepsis, unspecified organism; N17.9 Acute kidney failure, unspecified; E87.2 Acidosis; Z68.41 Body mass index [BMI] 40.0-44.9, adult; Z66 Do not resuscitate; I48.91 Unspecified atrial fibrillation; I10 Essential (primary) hypertension; E78.5 Hyperlipidemia, unspecified; G40.909 Epilepsy, unspecified, not intractable, without status epilepticus; N32.81 Overactive bladder; D72.829 Elevated white blood cell count, unspecified; E66.01 Morbid (severe) obesity due to excess calories; Z96.653 Presence of artificial knee joint, bilateral; Z79.84 Long term (current) use of oral hypoglycemic drugs; Z79.82 Long term (current) use of aspirin; Z79.899 Other long term (current) drug therapy
CPT/HCPCS: 31500; 36415; 51702; 62270; 70450; 71045; 74176; 77003; 80048; 80053; 81001; 82040; 82140; 82271; 82272; 82550; 82553; 82803; 82945; 82962; 83036; 83605; 83735; 84100; 84157; 84443; 84484; 85025; 85027; 85610; 85730; 87040; 87070; 87086; 87205; 89050; 93005; 93010; 93306; 94002; 94003; 95819; 96365; 96366; 96368; 96376; 99291; C1751; J0330; J0456; J0692; J0696; J1650; J1815; J1940; J1953; J2060; J2270; J2704; J3010; J3370; J3475; J3480; J3490; J7030; J7060; S0164